=== PATIENT | female | born 1965 | race Caucasian/White ===

== ENCOUNTER → 2017-08-04 | Emergency (ER) | payer MEDICARE, MEDICAID | END | disposition home or self-care (01) | LOC: ER 09:18 | DX: S91.101A Unspecified open wound of right great toe without damage to nail, initial encounter (principal); Z88.1 Allergy status to other antibiotic agents; W22.8XXA Striking against or struck by other objects, initial encounter; Y93.89 Activity, other specified; Y99.8 Other external cause status; Y92.89 Other specified places as the place of occurrence of the external cause | CPT/HCPCS: 73660; 90471; 90715 ==

== ENCOUNTER 2018-01-22 03:59 | Emergency (ER) | payer MEDICARE, MEDICAID ==
[~2018-01-22] VITALS: Ht 172.7 cm; Wt 113.4 kg
[2018-01-22 04:46] LABS: Urine Bacteria FEW /hpf (None Seen); Urine Blood 1+ /uL (Negative); Urine Mucus FEW (None Seen); Urine Specific Gravity 1.017 (1.001-1.035); Urine WBC 8 /hpf (0 - 5)
[2018-01-22] MEDS ORDERED: methylPREDNISolone SOD SUCC 125 MG/2 ML VL IV ONE (05:00)
[2018-01-22] MEDS ORDERED: IPRATROPIUM BROM 0.5 MG/2.5ML INH SOL NEB ONE (05:00)
[2018-01-22] MEDS ORDERED: ALBUTEROL SULF 2.5 MG/0.5ML(0.5%) NEB SOLN NEB ONE (05:00)
[2018-01-22 05:03] LABS: Basophils # (auto) 0.2 uL; Basophils % (auto) 1.3 % (0.0-2.0); Eosinophils # (auto) 0.3 uL; Hematocrit 42.6 % (36.0-46.0); Hemoglobin 14.8 g/dL (12.2-16.2); Lymphocytes # (auto) 2.8 uL; Lymphocytes % (auto) 25.1 % (10.0-50.0); Mean Corpuscular Hemoglobin 31.4 pg (28.0-32.0); Mean Corpuscular Hgb Conc. 34.8 g/dL (32.0-36.0); Mean Corpuscular Volume 90.4 fL (80.0-100.0); Monocytes % (auto) 9.1 % (0.0-12.0); Neutrophils % (auto) 61.5 % (37.0-80.0); Platelet Count (auto) 247 10^3/uL (140-450); Red Blood Cells 4.71 10^6/uL (4.0-5.20); Red Cell Distribution Width 13.2 % (11.8-14.3); White Blood Cell 11.3 10^3/uL (4.4-10.8)
[2018-01-22 05:16] LABS: INR 0.94 (0.9-1.15); Partial Thromboplastin Time 30.5 sec (22.64-33.71); Prothrombin Time 10.2 sec (9.37-12.3)
[2018-01-22 05:26] LABS: Alanine Aminotransferase 23 U/L (13-56); Albumin 3.4 g/dL (3.4-5.0); Alkaline Phosphatase 106 U/L (45-117); Anion Gap 10 (5-15); Aspartate Aminotransferase 19 U/L (15-37); BUN/Creatinine Ratio 12.8; Bilirubin, Total 0.4 mg/dL (0.2-1.0); Blood Urea Nitrogen 12 mg/dL (7-18); Calcium 8.3 mg/dL (8.5-10.1); Carbon Dioxide 24 mmol/L (21-32); Chloride 106 mmol/L (98-107); GFR African American 81 mL/min; GFR Non-African American 67 mL/min; Glucose 110 mg/dL (74-106); Potassium 4.1 mmol/L (3.5-5.1); Sodium 140 mmol/L (136-145); Total Protein 7.5 g/dL (6.4-8.2)
[2018-01-22] MEDS ORDERED: IOHEXOL 350 MG/ML 100ML IJ ONE (08:44)
[2018-01-22] MEDS ORDERED: cefTRIAXone 1GM/10ml IVPUSH 10 ML IV ONE (08:45)
[2018-01-22 09:13] VITALS: BP 121/78
== END 2018-01-22 10:55 | disposition home or self-care (01) ==
LOC: ER 04:01
DX: J18.9 Pneumonia, unspecified organism (principal); F17.210 Nicotine dependence, cigarettes, uncomplicated
CPT/HCPCS: 36415; 71046; 71260; 80053; 81001; 83880; 84484; 85025; 85379; 85610; 85730; 87040; 93005; 94640; 96374; 96375; 99285; J2930; Q9967

== ENCOUNTER 2021-02-08 07:54 | Emergency (ER) | payer MEDICARE, MEDICAID ==
[~2021-02-08] VITALS: Ht 172.7 cm; Wt 109.8 kg
[2021-02-08 08:48] LABS: Urine Bacteria FEW /hpf (None Seen); Urine Blood 1+ /uL (Negative); Urine Hyaline Cast FEW /lpf (0 - 2); Urine Mucus FEW (None Seen); Urine Specific Gravity 1.022 (1.001-1.035); Urine WBC 1 /hpf (0 - 5)
[2021-02-08 09:09] LABS: Alcohol, Urine < 3.0 mg/dL (0-10); Benzodiazephine Screen, Urine NEGATIVE (NEGATIVE); Cannabinoid Screen, Urine POSITIVE (NEGATIVE); Cocaine Screen, Urine NEGATIVE (NEGATIVE); Opiate Scree,Urine NEGATIVE (NEGATIVE); Phencyclidine Screen, Urine NEGATIVE (NEGATIVE)
[2021-02-08 09:17] LABS: Amphetamine Screen, Urine POSITIVE (NEGATIVE); Barbiturate Scree,Urine NEGATIVE (NEGATIVE)
[2021-02-08 10:01] LABS: Basophils # (auto) 0.1 10 ^3/uL (0-0.2); Eosinophils # (auto) 0.2 10 ^3/uL (0-0.8); Eosinophils % (auto) 2.2 % (0.0-7.0); Hematocrit 45.7 % (36.0-46.0); Hemoglobin 15.5 g/dL (12.2-16.2); Lymphocytes # (auto) 1.9 10 ^3/uL (0.4-5.4); Lymphocytes % (auto) 22.8 % (10.0-50.0); Mean Corpuscular Hemoglobin 29.5 pg (28.0-32.0); Mean Corpuscular Hgb Conc. 33.9 g/dL (32.0-36.0); Mean Corpuscular Volume 87.2 fL (80.0-100.0); Monocytes # (auto) 0.7 10 ^3/uL (0-1.3); Neutrophils # (auto) 5.5 10 ^3/uL (1.6-8.6); Nucleated Red Blood Cells % 0.1 %; Red Blood Cells 5.23 10^6/uL (4.0-5.20); Red Cell Distribution Width 14.3 % (11.8-14.3); White Blood Cell 8.4 10^3/uL (4.4-10.8)
[2021-02-08] MEDS ORDERED: KETOROLAC TROMETH 60MG/2ML VIAL IM ONE (10:15)
[2021-02-08] MEDS ORDERED: PROMETHAZINE HCL 25 MG/ML 1ML IM ONE (10:15)
[2021-02-08 10:16] LABS: Alanine Aminotransferase 26 U/L (13-56); Albumin 3.6 g/dL (3.4-5.0); Anion Gap 4 (5-15); Aspartate Aminotransferase 19 U/L (15-37); BUN/Creatinine Ratio 17.2; Blood Urea Nitrogen 17 mg/dL (7-18); Calcium 8.8 mg/dL (8.5-10.1); Carbon Dioxide 28 mmol/L (21-32); Chloride 107 mmol/L (98-107); GFR African American 75 mL/min; GFR Non-African American 62 mL/min; Glucose 113 mg/dL (74-106); Potassium 4.1 mmol/L (3.5-5.1); Sodium 139 mmol/L (136-145)
[2021-02-08 10:19] LABS: Alkaline Phosphatase 133 U/L (45-117); Bilirubin, Total 0.3 mg/dL (0.2-1.0); Total Protein 8.4 g/dL (6.4-8.2)
[2021-02-08 10:33] VITALS: BP 189/103
== END 2021-02-08 10:59 | disposition home or self-care (01) ==
LOC: ER 07:54
DX: K80.20 Calculus of gallbladder without cholecystitis without obstruction (principal); M51.34 Other intervertebral disc degeneration, thoracic region; F15.10 Other stimulant abuse, uncomplicated; F17.210 Nicotine dependence, cigarettes, uncomplicated; F12.10 Cannabis abuse, uncomplicated; K21.9 Gastro-esophageal reflux disease without esophagitis
CPT/HCPCS: 36415; 74176; 80053; 80307; 81001; 83690; 84484; 85025; 93005; 96372; 99285; J1885; J2550

== ENCOUNTER 2022-10-26 12:34 | Inpatient (IN) | payer MEDICARE, MEDICAID ==
[~2022-10-26] VITALS: Ht 175.3 cm; Wt 120.7 kg
[2022-10-26] MEDS ORDERED: ALBUTEROL SULF 2.5 MG/0.5ML(0.5%) NEB SOLN NEB ONE (13:15)
[2022-10-26] MEDS ORDERED: IPRATROPIUM BROM 0.5 MG/2.5ML INH SOL NEB ONE (13:15)
[2022-10-26] MEDS ORDERED: SODIUM CHLORIDE 0.9% 1,000 ML IV ONE (13:15)
[2022-10-26] MEDS ORDERED: ACETAMINOPHEN 500 MG TAB PO ONE (14:00)
[2022-10-26 14:15] LABS: Basophils # (auto) 0.1 10 ^3/uL (0-0.2); Basophils % (auto) 0.4 % (0.0-2.0); Eosinophils # (auto) 0 10 ^3/uL (0-0.8); Hematocrit 43.7 % (36.0-46.0); Hemoglobin 14.6 g/dL (12.2-16.2); Lymphocytes # (auto) 1.3 10 ^3/uL (0.4-5.4); Mean Corpuscular Hemoglobin 30.3 pg (28.0-32.0); Mean Corpuscular Hgb Conc. 33.3 g/dL (32.0-36.0); Mean Corpuscular Volume 90.9 fL (80.0-100.0); Monocytes # (auto) 1.8 10 ^3/uL (0-1.3); Monocytes % (auto) 8.1 % (0.0-12.0); Neutrophils # (auto) 18.5 10 ^3/uL (1.6-8.6); Neutrophils % (auto) 85.5 % (37.0-80.0); Red Blood Cells 4.81 10^6/uL (4.0-5.20); Red Cell Distribution Width 13.3 % (11.8-14.3); White Blood Cell 21.6 10^3/uL (4.4-10.8)
[2022-10-26 14:30] LABS: Albumin 2.9 g/dL (3.4-5.0); Calcium 8.9 mg/dL (8.5-10.1); Potassium 4.2 mmol/L (3.5-5.1)
[2022-10-26 14:33] LABS: BUN/Creatinine Ratio 10.9
[2022-10-26 14:43] LABS: Bilirubin, Total 0.9 mg/dL (0.2-1.0)
[2022-10-26] MEDS ORDERED: cefTRIAXone 1GM/50ML D5W 50 ML IV ONE (15:45)
[2022-10-26 16:48] LABS: Urine Bacteria NONE SEEN /hpf (None Seen); Urine Blood 2+ /uL (Negative); Urine Hyaline Cast FEW /lpf (0 - 2); Urine Mucus FEW (None Seen); Urine Specific Gravity 1.025 (1.001-1.035); Urine WBC 5 /hpf (0 - 5)
[2022-10-26] MEDS ORDERED: AZITHROMYCIN 500MG/ 250ML 250 ML IV ONE (17:30)
[2022-10-26] MEDS ORDERED: ACETAMINOPHEN 325 MG TAB PO ONE (20:15)
[2022-10-26] MEDS ORDERED: NITROGLYCERIN 0.4 MG SL TAB SL PRN ×2 (21:00)
[2022-10-26] MEDS ORDERED: ACETAMINOPHEN 325 MG TAB PO PRN (21:00)
[2022-10-26] MEDS ORDERED: MORPHINE SULFATE 4 MG/ML SYR/VIAL IV PRN (21:00)
[2022-10-26] MEDS ORDERED: LORazepam 0.5 MG TAB PO PRN (21:00)
[2022-10-26] MEDS ORDERED: ONDANSETRON HCL 4 MG/2 ML VIAL IV PRN (21:00)
[2022-10-26] MEDS ORDERED: MORPHINE SULFATE INJ 2 MG/ml SYRG IV PRN (21:00)
[2022-10-26] MEDS ORDERED: DEXTROSE (50%) 50ML SYRG IV PRN (21:15)
[2022-10-26] MEDS: SODIUM CHLORIDE 0.9% 1,000 ML IV SCH (21:36)
[2022-10-26] MEDS ORDERED: ENOXAPARIN SOD 100 MG/1 ML SYRINGE SC SCH (22:00)
[2022-10-26] MEDS ORDERED: METOPROLOL TARTRATE 25 MG TAB PO SCH (22:00)
[2022-10-26] MEDS ORDERED: ATOR20TA50 PO (23:03)
[2022-10-26] MEDS ORDERED: HYDR-3682 PO (23:03)
[2022-10-26] MEDS ORDERED: ELVI1TAB5 PO (23:03)
[2022-10-26] MEDS: IPRATROPIUM BROM 0.5 MG/2.5ML INH SOL NEB PRN ×2 (23:14→23:37)
[2022-10-26] MEDS: ALBUTEROL SULF 2.5 MG/0.5ML(0.5%) NEB SOLN NEB PRN ×2 (23:14→23:37)
[2022-10-26] MEDS: ACCU-CHEK COMFORT CURVE STRIP VI SCH (23:23)
[2022-10-26] MEDS: ATORVASTATIN 20 MG TAB PO SCH (23:23)
[2022-10-26] MEDS: InsuLIN REG 1unit/0.01ml Soln (100units/ml) SC SCH (23:28)
[2022-10-26 23:51] VITALS: BP 110/56
[2022-10-27] MEDS: ACCU-CHEK COMFORT CURVE STRIP VI SCH ×4 (04:13→21:41)
[2022-10-27] MEDS: InsuLIN REG 1unit/0.01ml Soln (100units/ml) SC SCH ×4 (04:16→22:51)
[2022-10-27] MEDS: IPRATROPIUM BROM 0.5 MG/2.5ML INH SOL NEB PRN (04:40)
[2022-10-27] MEDS: ALBUTEROL SULF 2.5 MG/0.5ML(0.5%) NEB SOLN NEB PRN (04:40)
[2022-10-27 05:00] VITALS: BP 99/57
[2022-10-27 06:40] LABS: Potassium 3.8 mmol/L (3.5-5.1)
[2022-10-27 06:45] LABS: Basophils # (auto) 0.1 10 ^3/uL (0-0.2); Basophils % (auto) 0.4 % (0.0-2.0); Eosinophils # (auto) 0 10 ^3/uL (0-0.8); Eosinophils % (auto) 0.1 % (0.0-7.0); Hemoglobin 12.1 g/dL (12.2-16.2); Lymphocytes # (auto) 1.8 10 ^3/uL (0.4-5.4); Lymphocytes % (auto) 9.3 % (10.0-50.0); Mean Corpuscular Hemoglobin 30.8 pg (28.0-32.0); Mean Corpuscular Hgb Conc. 34.5 g/dL (32.0-36.0); Mean Corpuscular Volume 89.5 fL (80.0-100.0); Monocytes # (auto) 1.3 10 ^3/uL (0-1.3); Neutrophils # (auto) 15.6 10 ^3/uL (1.6-8.6); Neutrophils % (auto) 83.2 % (37.0-80.0); Red Blood Cells 3.92 10^6/uL (4.0-5.20); Red Cell Distribution Width 13.4 % (11.8-14.3); White Blood Cell 18.8 10^3/uL (4.4-10.8)
[2022-10-27 07:13] LABS: BUN/Creatinine Ratio 16.9
[2022-10-27 07:14] LABS: Calcium 8.6 mg/dL (8.5-10.1)
[2022-10-27] MEDS ORDERED: DEXTROSE (50%) 50ML SYRG IV PRN (08:30)
[2022-10-27] MEDS ORDERED: IPRATROPIUM BROM 0.5 MG/2.5ML INH SOL NEB PRN (08:30)
[2022-10-27] MEDS ORDERED: ALBUTEROL SULF 2.5 MG/0.5ML(0.5%) NEB SOLN NEB PRN (08:30)
[2022-10-27] MEDS ORDERED: ACETAMINOPHEN 325 MG TAB PO PRN (08:30)
[2022-10-27 09:00] VITALS: BP 93/57
[2022-10-27] MEDS ORDERED: CLOPIDOGREL BISULFATE 75 MG TAB PO SCH (10:00)
[2022-10-27] MEDS ORDERED: LISINOPRIL 10 MG TAB PO SCH (10:00)
[2022-10-27] MEDS ORDERED: ELVITEGRAVIR COBICISTAT EMTRIC PO SCH (10:00)
[2022-10-27] MEDS: cefTRIAXone 1GM/50ML D5W 50 ML IV SCH (11:29)
[2022-10-27] MEDS: ASPirin 81 mg TAB PO SCH (11:35)
[2022-10-27] MEDS: DOCUSATE SOD 100 MG CAP PO SCH (11:35)
[2022-10-27] MEDS: PANTOPRAZOLE 40 MG TAB PO SCH (11:36)
[2022-10-27] MEDS: ENOXAPARIN SOD 120 MG/0.8 ML SYRINGE SC SCH ×2 (11:40→21:38)
[2022-10-27 13:00] VITALS: BP 115/59
[2022-10-27] MEDS: AZITHROMYCIN 500MG/ 250ML 250 ML IV SCH (13:00)
[2022-10-27 17:00] VITALS: BP 122/64
[2022-10-27] MEDS: ATORVASTATIN 20 MG TAB PO SCH (21:37)
[2022-10-27] MEDS: SODIUM CHLORIDE 0.9% 1,000 ML IV SCH (21:38)
[2022-10-27] MEDS: ELVITEGRAVIR COBICISTAT EMTRIC PO SCH (21:38)
[2022-10-27 22:00] VITALS: BP 103/51
[2022-10-28] VITALS (7 sets, daily range): BP systolic 108–133; BP diastolic 62–69
[2022-10-28 06:22] LABS: Basophils # (auto) 0.1 10 ^3/uL (0-0.2); Basophils % (auto) 0.8 % (0.0-2.0); Eosinophils # (auto) 0.2 10 ^3/uL (0-0.8); Eosinophils % (auto) 1.7 % (0.0-7.0); Hematocrit 35.9 % (36.0-46.0); Lymphocytes # (auto) 2.1 10 ^3/uL (0.4-5.4); Lymphocytes % (auto) 13.9 % (10.0-50.0); Mean Corpuscular Hemoglobin 30.5 pg (28.0-32.0); Mean Corpuscular Hgb Conc. 33.3 g/dL (32.0-36.0); Mean Corpuscular Volume 91.6 fL (80.0-100.0); Monocytes # (auto) 0.8 10 ^3/uL (0-1.3); Monocytes % (auto) 5.3 % (0.0-12.0); Neutrophils # (auto) 11.7 10 ^3/uL (1.6-8.6); Neutrophils % (auto) 78.3 % (37.0-80.0); Red Blood Cells 3.92 10^6/uL (4.0-5.20); Red Cell Distribution Width 13.6 % (11.8-14.3); White Blood Cell 14.9 10^3/uL (4.4-10.8)
[2022-10-28] MEDS: ACCU-CHEK COMFORT CURVE STRIP VI SCH ×4 (06:58→22:48)
[2022-10-28] MEDS: InsuLIN REG 1unit/0.01ml Soln (100units/ml) SC SCH ×4 (06:59→22:49)
[2022-10-28] MEDS: cefTRIAXone 1GM/50ML D5W 50 ML IV SCH (09:55)
[2022-10-28] MEDS: ENOXAPARIN SOD 120 MG/0.8 ML SYRINGE SC SCH ×2 (09:55→22:47)
[2022-10-28] MEDS: ASPirin 81 mg TAB PO SCH (09:55)
[2022-10-28] MEDS: PANTOPRAZOLE 40 MG TAB PO SCH (09:55)
[2022-10-28] MEDS: DOCUSATE SOD 100 MG CAP PO SCH (09:55)
[2022-10-28] MEDS: ELVITEGRAVIR COBICISTAT EMTRIC PO SCH (09:56)
[2022-10-28] MEDS: AZITHROMYCIN 500MG/ 250ML 250 ML IV SCH (10:55)
[2022-10-28 11:36] LABS: BUN/Creatinine Ratio 15.4; Magnesium 2.5 mg/dL (1.6-2.6); Potassium 3.9 mmol/L (3.5-5.1)
[2022-10-28] MEDS ORDERED: BACTRIM 5MG/KG Q8HR PER RX 0 ML IV SCH (12:00)
[2022-10-28] MEDS ORDERED: VANCOMYCIN PER PHARMACY 0 MG IV SCH (12:00)
[2022-10-28] MEDS ORDERED: VANCOMYCIN 1GM/250ML 250 ML IV ONE (12:45)
[2022-10-28] MEDS: SULFAMETH-TRIMETH 80/16MG-ML 20 ML in D5W 5% 500 ML IV SCH (18:55)
[2022-10-28] MEDS: ATORVASTATIN 20 MG TAB PO SCH (22:45)
[2022-10-28] MEDS: ZOLPIDEM TARTRATE 5 MG TAB PO PRN (22:45)
[2022-10-28] MEDS: predniSONE 20 MG TAB PO SCH (22:47)
[2022-10-29] VITALS (7 sets, daily range): BP systolic 113–134; BP diastolic 55–70
[2022-10-29] MEDS: VANCOMYCIN 1GM/250ML 250 ML IV SCH ×2 (00:26→08:20)
[2022-10-29] MEDS: SULFAMETH-TRIMETH 80/16MG-ML 20 ML in D5W 5% 500 ML IV SCH ×3 (01:35→16:51)
[2022-10-29 06:32] LABS: BUN/Creatinine Ratio 12.5; Calcium 8.8 mg/dL (8.5-10.1); Potassium 4.4 mmol/L (3.5-5.1)
[2022-10-29 06:39] LABS: Basophils # (auto) 0.1 10 ^3/uL (0-0.2); Basophils % (auto) 0.5 % (0.0-2.0); Eosinophils # (auto) 0 10 ^3/uL (0-0.8); Eosinophils % (auto) 0.3 % (0.0-7.0); Hematocrit 36.7 % (36.0-46.0); Hemoglobin 12.6 g/dL (12.2-16.2); Lymphocytes # (auto) 1.2 10 ^3/uL (0.4-5.4); Mean Corpuscular Hgb Conc. 34.3 g/dL (32.0-36.0); Mean Corpuscular Volume 90.3 fL (80.0-100.0); Monocytes # (auto) 0.2 10 ^3/uL (0-1.3); Monocytes % (auto) 2.2 % (0.0-12.0); Neutrophils # (auto) 9.1 10 ^3/uL (1.6-8.6); Red Blood Cells 4.07 10^6/uL (4.0-5.20); Red Cell Distribution Width 13.3 % (11.8-14.3); White Blood Cell 10.6 10^3/uL (4.4-10.8)
[2022-10-29] MEDS: InsuLIN REG 1unit/0.01ml Soln (100units/ml) SC SCH ×4 (07:12→22:13)
[2022-10-29] MEDS: ACCU-CHEK COMFORT CURVE STRIP VI SCH ×4 (07:21→22:00)
[2022-10-29] MEDS: cefTRIAXone 1GM/50ML D5W 50 ML IV SCH (10:54)
[2022-10-29] MEDS: predniSONE 20 MG TAB PO SCH ×2 (10:54→22:11)
[2022-10-29] MEDS: ASPirin 81 mg TAB PO SCH (10:54)
[2022-10-29] MEDS: DOCUSATE SOD 100 MG CAP PO SCH (10:54)
[2022-10-29] MEDS: PANTOPRAZOLE 40 MG TAB PO SCH (10:55)
[2022-10-29] MEDS: ENOXAPARIN SOD 120 MG/0.8 ML SYRINGE SC SCH ×2 (10:55→22:11)
[2022-10-29] MEDS: ELVITEGRAVIR COBICISTAT EMTRIC PO SCH (10:55)
[2022-10-29] MEDS: AZITHROMYCIN 500MG/ 250ML 250 ML IV SCH (11:59)
[2022-10-29 14:59] LABS: Hepatitis C Antibody Negative (Negative)
[2022-10-29] MEDS: ATORVASTATIN 20 MG TAB PO SCH (22:11)
[2022-10-29] MEDS: ZOLPIDEM TARTRATE 5 MG TAB PO PRN (22:11)
[2022-10-30] VITALS (7 sets, daily range): BP systolic 97–138; BP diastolic 50–98
[2022-10-30] MEDS: SULFAMETH-TRIMETH 80/16MG-ML 20 ML in D5W 5% 500 ML IV SCH ×3 (01:51→17:15)
[2022-10-30] MEDS: ACCU-CHEK COMFORT CURVE STRIP VI SCH ×4 (06:12→21:36)
[2022-10-30] MEDS: InsuLIN REG 1unit/0.01ml Soln (100units/ml) SC SCH ×4 (06:17→21:41)
[2022-10-30] MEDS: cefTRIAXone 1GM/50ML D5W 50 ML IV SCH (09:07)
[2022-10-30] MEDS: ELVITEGRAVIR COBICISTAT EMTRIC PO SCH (09:10)
[2022-10-30] MEDS: predniSONE 20 MG TAB PO SCH ×2 (09:10→21:36)
[2022-10-30] MEDS: ASPirin 81 mg TAB PO SCH (09:10)
[2022-10-30] MEDS: DOCUSATE SOD 100 MG CAP PO SCH (09:11)
[2022-10-30] MEDS: PANTOPRAZOLE 40 MG TAB PO SCH (09:11)
[2022-10-30] MEDS: AZITHROMYCIN 500MG/ 250ML 250 ML IV SCH (09:12)
[2022-10-30] MEDS: ENOXAPARIN SOD 120 MG/0.8 ML SYRINGE SC SCH ×2 (09:12→21:36)
[2022-10-30] MEDS: ZOLPIDEM TARTRATE 5 MG TAB PO PRN (21:36)
[2022-10-30] MEDS: ATORVASTATIN 20 MG TAB PO SCH (21:36)
[2022-10-31] MEDS: SULFAMETH-TRIMETH 80/16MG-ML 20 ML in D5W 5% 500 ML IV SCH ×2 (01:43→08:44)
[2022-10-31 05:00] VITALS: BP 112/46
[2022-10-31] MEDS: ACCU-CHEK COMFORT CURVE STRIP VI SCH ×2 (06:19→11:57)
[2022-10-31] MEDS: InsuLIN REG 1unit/0.01ml Soln (100units/ml) SC SCH ×2 (06:19→11:52)
[2022-10-31 08:05] VITALS: BP 97/73
[2022-10-31] MEDS: cefTRIAXone 1GM/50ML D5W 50 ML IV SCH (08:44)
[2022-10-31] MEDS: AZITHROMYCIN 500MG/ 250ML 250 ML IV SCH (08:46)
[2022-10-31] MEDS: DOCUSATE SOD 100 MG CAP PO SCH (08:51)
[2022-10-31] MEDS: ENOXAPARIN SOD 120 MG/0.8 ML SYRINGE SC SCH (08:51)
[2022-10-31] MEDS: ASPirin 81 mg TAB PO SCH (08:51)
[2022-10-31] MEDS: PANTOPRAZOLE 40 MG TAB PO SCH (08:51)
[2022-10-31] MEDS: ELVITEGRAVIR COBICISTAT EMTRIC PO SCH (08:52)
[2022-10-31] MEDS: predniSONE 20 MG TAB PO SCH (08:52)
[2022-10-31 09:14] VITALS: BP 140/63
[2022-10-31 12:35] VITALS: BP 145/71
[2022-10-31] MEDS ORDERED: METF-370 PO (13:52)
[2022-10-31] MEDS ORDERED: metFORMIN HYDROCHLORIDE 500 MG TAB PO ONE (14:00)
[2022-10-31] MEDS ORDERED: BACDST PO (14:09)
[2022-10-31] MEDS ORDERED: ELVI1TAB5 PO (14:14)
[2022-10-31] MEDS ORDERED: PRED20TA2 PO (14:14)
[2022-11-01] MEDS ORDERED: AZITHROMYCIN 250 MG TAB PO SCH (10:00)
== END 2022-10-31 15:27 | disposition home or self-care (01) | DRG 871 ==
LOC: ER 12:34 → TELE 21:00 → TELE-EAST 22:32
PROVIDERS: ADMIT Hospitalist; ATTEND Internal Medicine Geriatric Medicine
DX: A41.9 Sepsis, unspecified organism (principal); I26.99 Other pulmonary embolism without acute cor pulmonale; J18.9 Pneumonia, unspecified organism; J96.01 Acute respiratory failure with hypoxia; N17.9 Acute kidney failure, unspecified; E87.1 Hypo-osmolality and hyponatremia; E44.0 Moderate protein-calorie malnutrition; E03.9 Hypothyroidism, unspecified; K21.9 Gastro-esophageal reflux disease without esophagitis; E11.21 Type 2 diabetes mellitus with diabetic nephropathy; Z20.822 Contact with and (suspected) exposure to COVID-19; F17.210 Nicotine dependence, cigarettes, uncomplicated; E66.01 Morbid (severe) obesity due to excess calories; F15.10 Other stimulant abuse, uncomplicated; Z82.49 Family history of ischemic heart disease and other diseases of the circulatory system; Z68.39 Body mass index [BMI] 39.0-39.9, adult
CPT/HCPCS: 36415; 71046; 71250; 78582; 80048; 80053; 80061; 80202; 81001; 82962; 83036; 83735; 83880; 84443; 84484; 85025; 85379; 86360; 86606; 86635; 86644; 86645; 86803; 87040; 87070; 87081; 87205; 87340; 87426; 87804; 87899; 93005; 93306; 93970; 94640; 96361; 96365; 96367; G0378; J0696; J1815; J3490

== ENCOUNTER 2022-11-05 14:41 | Emergency (ER) | payer MEDICARE, MEDICAID ==
[~2022-11-05] VITALS: Ht 172.7 cm; Wt 114.1 kg
[~2022-11-05 14:41] MED LIST: BACDST PO; ELVI1TAB5 PO; HYDR-3682 PO; METF-370 PO; PRED20TA2 PO
[2022-11-05 14:54] VITALS: BP 113/73
[2022-11-05 16:04] LABS: Albumin 3.5 g/dL (3.4-5.0); BUN/Creatinine Ratio 13.1; Calcium 9.7 mg/dL (8.5-10.1); Potassium 5.4 mmol/L (3.5-5.1)
[2022-11-05 16:07] LABS: Bilirubin, Total 0.3 mg/dL (0.2-1.0); Total Protein 7.4 g/dL (6.4-8.2)
[2022-11-05 16:13] LABS: Basophils # (auto) 0.1 10 ^3/uL (0-0.2); Basophils % (auto) 0.6 % (0.0-2.0); Eosinophils # (auto) 0.1 10 ^3/uL (0-0.8); Eosinophils % (auto) 1.3 % (0.0-7.0); Hematocrit 45.9 % (36.0-46.0); Hemoglobin 15.4 g/dL (12.2-16.2); Lymphocytes # (auto) 2.7 10 ^3/uL (0.4-5.4); Lymphocytes % (auto) 27.3 % (10.0-50.0); Mean Corpuscular Hemoglobin 30.4 pg (28.0-32.0); Mean Corpuscular Hgb Conc. 33.5 g/dL (32.0-36.0); Mean Corpuscular Volume 90.9 fL (80.0-100.0); Monocytes # (auto) 0.5 10 ^3/uL (0-1.3); Monocytes % (auto) 4.6 % (0.0-12.0); Neutrophils # (auto) 6.6 10 ^3/uL (1.6-8.6); Neutrophils % (auto) 66.2 % (37.0-80.0); Red Blood Cells 5.05 10^6/uL (4.0-5.20); Red Cell Distribution Width 13.8 % (11.8-14.3)
[2022-11-05] MEDS ORDERED: ALBUTEROL SULF 2.5 MG/0.5ML(0.5%) NEB SOLN NEB ONE (21:45)
[2022-11-05 22:04] LABS: Urine Bacteria NONE SEEN /hpf (None Seen); Urine Blood Negative /uL (Negative); Urine Specific Gravity 1.023 (1.001-1.035); Urine WBC 1 /hpf (0 - 5)
[2022-11-05] MEDS ORDERED: ALBUTEROL MEDNEB 2.5 mg/3ml NEB ONE (22:14)
== END 2022-11-05 23:18 | disposition home or self-care (01) ==
LOC: ER 14:41
DX: R53.1 Weakness (principal); E87.5 Hyperkalemia; E11.9 Type 2 diabetes mellitus without complications; K21.9 Gastro-esophageal reflux disease without esophagitis; F17.210 Nicotine dependence, cigarettes, uncomplicated; Z79.899 Other long term (current) drug therapy; Z20.822 Contact with and (suspected) exposure to COVID-19
CPT/HCPCS: 36415; 71046; 80053; 81001; 83880; 84484; 85025; 87426; 93005; 94640

== ENCOUNTER 2023-03-04 01:23 | Emergency (ER) | payer MEDICARE, MEDICAID ==
[~2023-03-04] VITALS: Ht 172.7 cm; Wt 118.0 kg
[2023-03-04 02:34] LABS: Basophils # (auto) 0.1 10 ^3/uL (0-0.2); Basophils % (auto) 1.3 % (0.0-2.0); Eosinophils # (auto) 0.2 10 ^3/uL (0-0.8); Eosinophils % (auto) 2.4 % (0.0-7.0); Hematocrit 42.2 % (36.0-46.0); Hemoglobin 14.3 g/dL (12.2-16.2); Lymphocytes # (auto) 2.2 10 ^3/uL (0.4-5.4); Mean Corpuscular Hemoglobin 32.2 pg (28.0-32.0); Mean Corpuscular Hgb Conc. 33.9 g/dL (32.0-36.0); Monocytes # (auto) 0.6 10 ^3/uL (0-1.3); Monocytes % (auto) 8.1 % (0.0-12.0); Neutrophils # (auto) 4.2 10 ^3/uL (1.6-8.6); Neutrophils % (auto) 58.2 % (37.0-80.0); Nucleated Red Blood Cells % 0.1 %; Red Blood Cells 4.44 10^6/uL (4.0-5.20); Red Cell Distribution Width 13.7 % (11.8-14.3); White Blood Cell 7.2 10^3/uL (4.4-10.8)
[2023-03-04 02:42] LABS: Albumin 3.4 g/dL (3.4-5.0); Calcium 8.8 mg/dL (8.5-10.1); Magnesium 2.2 mg/dL (1.6-2.6)
[2023-03-04 02:45] LABS: BUN/Creatinine Ratio 11.8 (10.0-20.0); Bilirubin, Total 0.3 mg/dL (0.2-1.0); Total Protein 7.1 g/dL (6.4-8.2)
[2023-03-04 02:53] LABS: INR 0.96 (0.9-1.15); Partial Thromboplastin Time 30.5 sec (24.6-33.4)
[2023-03-04] MEDS ORDERED: ALBUAER3 IN (05:51)
[2023-03-04] MEDS ORDERED: PRED20TA2 PO (05:51)
[2023-03-04] MEDS ORDERED: AZIT250T9 PO (05:51)
[2023-03-04 06:00] VITALS: BP 125/60
== END 2023-03-04 06:04 | disposition home or self-care (01) ==
LOC: ER 01:23
DX: J06.9 Acute upper respiratory infection, unspecified (principal); E11.9 Type 2 diabetes mellitus without complications; K21.9 Gastro-esophageal reflux disease without esophagitis; F12.10 Cannabis abuse, uncomplicated; F15.10 Other stimulant abuse, uncomplicated
CPT/HCPCS: 36415; 71045; 80053; 83735; 83880; 84484; 85025; 85610; 85730; 93005

== ENCOUNTER 2024-03-16 14:52 | Emergency (ER) | payer OTHER, MEDICAID ==
[~2024-03-16] VITALS: Ht 172.7 cm; Wt 113.2 kg
[~2024-03-16 14:52] MED LIST changes: +ALBUAER3 IN; +AZIT-43 PO
[2024-03-16 15:28] VITALS: BP 93/72; PULSE 105; RESP 20; O2SAT 97
[2024-03-16 16:13] LABS: Basophils # (auto) 0.1 10 ^3/uL (0-0.2); Basophils % (auto) 1.2 % (0.0-2.0); Eosinophils # (auto) 0 10 ^3/uL (0-0.8); Eosinophils % (auto) 0.3 % (0.0-7.0); Hematocrit 38.7 % (36.0-46.0); Hemoglobin 12.9 g/dL (12.2-16.2); Lymphocytes # (auto) 1.9 10 ^3/uL (0.4-5.4); Mean Corpuscular Hemoglobin 30.3 pg (28.0-32.0); Mean Corpuscular Hgb Conc. 33.2 g/dL (32.0-36.0); Mean Corpuscular Volume 91.3 fL (80.0-100.0); Monocytes # (auto) 0.1 10 ^3/uL (0-1.3); Monocytes % (auto) 3.3 % (0.0-12.0); Neutrophils # (auto) 2.4 10 ^3/uL (1.6-8.6); Neutrophils % (auto) 53.2 % (37.0-80.0); Nucleated Red Blood Cells % 0.1 %; Red Blood Cells 4.24 10^6/uL (4.0-5.20); Red Cell Distribution Width 14.2 % (11.8-14.3); White Blood Cell 4.5 10^3/uL (4.4-10.8)
[2024-03-16 16:32] LABS: Alanine Aminotransferase 21 U/L (7-40); Albumin 4.2 g/dL (3.2-4.8); Alkaline Phosphatase 106 U/L (46-116); Anion Gap 6 (5-15); Aspartate Aminotransferase 11 U/L (13-40); Bilirubin, Total 0.5 mg/dL (0.2-1.0); Blood Urea Nitrogen 23 mg/dL (9-23); Calcium 9.3 mg/dL (8.5-10.1); Carbon Dioxide 26 mmol/L (20-30); Chloride 103 mmol/L (98-107); Glucose 236 mg/dL (74-106); Potassium 4.1 mmol/L (3.5-5.1); Sodium 135 mmol/L (136-145); Total Protein 6.4 g/dL (5.7-8.2)
[2024-03-16 17:50] LABS: Urine Bacteria None Seen /hpf (None Seen)
[2024-03-16 18:11] LABS: Urine Blood Negative /uL (Negative); Urine Clarity Clear (Clear); Urine Color Light-Yellow (Yellow); Urine Protein, UAD Negative (Negative); Urine Specific Gravity 1.034 (1.001-1.035); Urine Urobilinogen Normal (Negative); Urine WBC 1 /hpf (0 - 5); Urine pH 5.5 (5.0-9.0)
[2024-03-16] MEDS: ONDANSETRON HCL 4 MG/2 ML VIAL IV ONE (20:00)
[2024-03-16] MEDS: SODIUM CHLORIDE 0.9% 1,000 ML IV ONE (20:00)
== END 2024-03-16 22:05 | disposition home or self-care (01) ==
LOC: ER 14:52
DX: E11.21 Type 2 diabetes mellitus with diabetic nephropathy (principal); E44.0 Moderate protein-calorie malnutrition; E66.01 Morbid (severe) obesity due to excess calories; R53.1 Weakness; K21.9 Gastro-esophageal reflux disease without esophagitis; F15.90 Other stimulant use, unspecified, uncomplicated; Z68.37 Body mass index [BMI] 37.0-37.9, adult; Z98.890 Other specified postprocedural states; Z79.899 Other long term (current) drug therapy
CPT/HCPCS: 36415; 71045; 80053; 81001; 83605; 83880; 84484; 85025

== ENCOUNTER → 2024-03-19 | Outpatient (CLI) | payer OTHER, MEDICAID | END | disposition home or self-care (01) | LOC: XYW 12:39 | PROVIDERS: ATTEND Student in an Organized Health Care Education/Training Program | DX: Z01.810 Encounter for preprocedural cardiovascular examination (principal); I10 Essential (primary) hypertension; E11.65 Type 2 diabetes mellitus with hyperglycemia | CPT/HCPCS: 93306 ==

== ENCOUNTER 2024-07-23 21:40 | Inpatient (IN) | payer OTHER, MEDICAID ==
[~2024-07-23] VITALS: Ht 170.2 cm; Wt 108.5 kg
[2024-07-23 22:03] LABS: Mean Corpuscular Hgb Conc. 34.3 g/dL (32.0-36.0)
[2024-07-23 22:05] LABS: Hematocrit 30.9 % (36.0-46.0); Hemoglobin 10.6 g/dL (12.2-16.2); Mean Corpuscular Hemoglobin 32.9 pg (28.0-32.0); Platelet Count (auto) 267 10^3/uL (140-450); Red Blood Cells 3.22 10^6/uL (4.0-5.20); Red Cell Distribution Width 17.3 % (11.8-14.3); White Blood Cell 1.9 10^3/uL (4.4-10.8)
[2024-07-23 22:07] LABS: Basophils % (manual) 0 (0.0-2.0); Blast Cells 0; Eosinophils % (manual) 0 (0-7); Metamyelocytes % 0; Myelocytes % 0; Promyelocytes % 0; Reactive Lymphocytes 0
[2024-07-23 22:20] LABS: Albumin 4.4 g/dL (3.2-4.8); Alkaline Phosphatase 93 U/L (46-116); Anion Gap 5 (5-15); Aspartate Aminotransferase 8 U/L (13-40); BUN/Creatinine Ratio 8.1 (10.0-20.0); Bilirubin, Total 0.3 mg/dL (0.2-1.0); Blood Urea Nitrogen 10 mg/dL (9-23); Calcium 9.7 mg/dL (8.7-10.4); Carbon Dioxide 29 mmol/L (20-30); Chloride 103 mmol/L (98-107); Glucose 178 mg/dL (74-106); Sodium 137 mmol/L (136-145); Total Protein 7.2 g/dL (5.7-8.2)
[2024-07-23 22:25] LABS: Alanine Aminotransferase < 9 U/L (7-40)
[2024-07-23 22:35] LABS: Band Neutrophils % (manual) 8; Lymphocytes % (manual) 43 (10.0-50.0); Monocytes % (manual) 21 (0-12)
[2024-07-23 22:36] LABS: Platelet Estimate Adequate
[2024-07-23] MEDS: SODIUM CHLORIDE 0.9% 1,000 ML IV ONE (23:05)
[2024-07-23] MEDS: ONDANSETRON HCL 4 MG/2 ML VIAL IV ONE (23:19)
[2024-07-23] MEDS: KETOROLAC TROMETH 30 MG/ML 1ML VIAL IV ONE (23:20)
[2024-07-23] MEDS: IOHEXOL 350 MG/ML 100ML IJ ONE (23:58)
[2024-07-24] MEDS: InsuLIN REG 1unit/0.01ml Soln (100units/ml) SC SCH ×2 (00:34→07:51)
[2024-07-24] MEDS ORDERED: DOCUSATE SOD 100 MG CAP PO PRN (03:30)
[2024-07-24] MEDS ORDERED: HYDROcodone-ACET 5/325MG TAB PO PRN (03:30)
[2024-07-24] MEDS ORDERED: ACETAMINOPHEN 325 MG TAB PO PRN (03:30)
[2024-07-24] MEDS ORDERED: DEXTROSE (50%) 50ML SYRG IV PRN (03:30)
[2024-07-24] MEDS ORDERED: ONDANSETRON HCL 4 MG/2 ML VIAL IV PRN (03:30)
[2024-07-24] MEDS ORDERED: NITROGLYCERIN 0.4 MG SL TAB SL PRN (03:30)
[2024-07-24] MEDS ORDERED: MORPHINE SULFATE INJ 2 MG/ml SYRG IV PRN (03:30)
[2024-07-24] MEDS: SODIUM CHLOR 0.9% PF (SALINE LOCK) 10ML VIAL/SYR IV SCH (05:25)
[2024-07-24 05:27] LABS: Basophils # (auto) 0 10 ^3/uL (0-0.2); Eosinophils # (auto) 0 10 ^3/uL (0-0.8); Lymphocytes # (auto) 0.4 10 ^3/uL (0.4-5.4); Mean Corpuscular Volume 96.5 fL (80.0-100.0); Monocytes # (auto) 0.3 10 ^3/uL (0-1.3)
[2024-07-24 05:31] LABS: Basophils % (auto) 0.5 % (0.0-2.0); Eosinophils % (auto) 1.4 % (0.0-7.0); Hematocrit 29.8 % (36.0-46.0); Hemoglobin 10.2 g/dL (12.2-16.2); Lymphocytes % (auto) 24.8 % (10.0-50.0); Mean Corpuscular Hemoglobin 32.9 pg (28.0-32.0); Mean Corpuscular Hgb Conc. 34.1 g/dL (32.0-36.0); Monocytes % (auto) 17.9 % (0.0-12.0); Neutrophils # (auto) 0.9 10 ^3/uL (1.6-8.6); Neutrophils % (auto) 55.4 % (37.0-80.0); Nucleated Red Blood Cells % 0.4 %; Platelet Count (auto) 252 10^3/uL (140-450); Red Blood Cells 3.09 10^6/uL (4.0-5.20); Red Cell Distribution Width 17.3 % (11.8-14.3)
[2024-07-24 05:59] LABS: Alkaline Phosphatase 83 U/L (46-116); Anion Gap 8 (5-15); BUN/Creatinine Ratio 8.3 (10.0-20.0); Blood Urea Nitrogen 10 mg/dL (9-23); Calcium 9.1 mg/dL (8.7-10.4); Carbon Dioxide 23 mmol/L (20-30); Chloride 105 mmol/L (98-107); Glucose 189 mg/dL (74-106); Potassium 4.2 mmol/L (3.5-5.1); Sodium 136 mmol/L (136-145)
[2024-07-24 06:00] LABS: Albumin 4.2 g/dL (3.2-4.8)
[2024-07-24 06:01] LABS: Aspartate Aminotransferase < 8 U/L (13-40); Bilirubin, Total 0.2 mg/dL (0.2-1.0); Total Protein 6.8 g/dL (5.7-8.2)
[2024-07-24 06:38] LABS: Alanine Aminotransferase < 9 U/L (7-40)
[2024-07-24 07:20] LABS: White Blood Cell 1.5 10^3/uL (4.4-10.8)
[2024-07-24] MEDS: ACCU-CHEK COMFORT CURVE STRIP VI SCH (07:45)
[2024-07-24] MEDS: FAMOTIDINE (10MG/ML) 2ML VL IV SCH (10:25)
[2024-07-24 11:45] VITALS: PULSE 86
[2024-07-24 12:10] LABS: Urine Bacteria None Seen /hpf (None Seen)
[2024-07-24 12:44] LABS: Urine Blood Negative /uL (Negative); Urine Clarity Clear (Clear); Urine Color Yellow (Yellow); Urine Protein, UAD TRACE (Negative); Urine Urobilinogen Normal (Negative); Urine WBC 2 /hpf (0 - 5); Urine pH 5.5 (5.0-9.0)
[2024-07-24 12:53] LABS: Urine Specific Gravity > 1.050 (1.001-1.035)
[2024-07-24] MEDS: cefTRIAXone 1GM/50ML D5W 50 ML IV ONE (14:35)
[2024-07-24] MEDS: AZITHROMYCIN 500MG/ 250ML 250 ML IV ONE ×2 (16:08→16:31)
[2024-07-24 20:00] VITALS: PULSE 93; RESP 14; O2SAT 95
[2024-07-25] VITALS (10 sets, daily range): BP systolic 108–121; BP diastolic 50–66; PULSE 69–96; RESP 16–20; TEMP 98.4–99.3; O2SAT 94–97
[2024-07-25 07:49] LABS: Basophils # (auto) 0 10 ^3/uL (0-0.2); Basophils % (auto) 0.7 % (0.0-2.0); Eosinophils # (auto) 0 10 ^3/uL (0-0.8); Eosinophils % (auto) 1.6 % (0.0-7.0); Hematocrit 30.1 % (36.0-46.0); Hemoglobin 10.3 g/dL (12.2-16.2); Lymphocytes # (auto) 0.9 10 ^3/uL (0.4-5.4); Lymphocytes % (auto) 34.8 % (10.0-50.0); Mean Corpuscular Hemoglobin 32.7 pg (28.0-32.0); Mean Corpuscular Hgb Conc. 34.2 g/dL (32.0-36.0); Mean Corpuscular Volume 95.7 fL (80.0-100.0); Monocytes # (auto) 0.7 10 ^3/uL (0-1.3); Monocytes % (auto) 25.9 % (0.0-12.0); Neutrophils # (auto) 0.9 10 ^3/uL (1.6-8.6); Nucleated Red Blood Cells % 0.1 %; Platelet Count (auto) 259 10^3/uL (140-450); Red Blood Cells 3.15 10^6/uL (4.0-5.20); Red Cell Distribution Width 16.9 % (11.8-14.3); White Blood Cell 2.5 10^3/uL (4.4-10.8)
[2024-07-25 08:06] LABS: Alkaline Phosphatase 75 U/L (46-116); Anion Gap 7 (5-15); Aspartate Aminotransferase 13 U/L (13-40); BUN/Creatinine Ratio 7.6 (10.0-20.0); Bilirubin, Total 0.3 mg/dL (0.2-1.0); Blood Urea Nitrogen 7 mg/dL (9-23); Calcium 9.2 mg/dL (8.7-10.4); Carbon Dioxide 25 mmol/L (20-30); Chloride 107 mmol/L (98-107); Glucose 113 mg/dL (74-106); Sodium 139 mmol/L (136-145); Total Protein 6.1 g/dL (5.7-8.2)
[2024-07-25 08:07] LABS: Alanine Aminotransferase < 9 U/L (7-40)
[2024-07-25 08:12] LABS: Albumin 3.8 g/dL (3.2-4.8)
[2024-07-25] MEDS: cefTRIAXone 1GM/50ML D5W 50 ML IV SCH (09:35)
[2024-07-25] MEDS: AZITHROMYCIN 500MG/ 250ML 250 ML IV SCH (09:35)
[2024-07-26] VITALS (8 sets, daily range): BP systolic 90–121; BP diastolic 50–74; PULSE 81–109; RESP 18–20; TEMP 97.4–98.4; O2SAT 91–98
[2024-07-26 11:25] LABS: INR 1.06 (0.9-1.15); Partial Thromboplastin Time 27.2 SEC (24.5-34.5); Prothrombin Time 11.2 sec (9.3-11.8)
[2024-07-27 01:00] VITALS: BP 108/64; PULSE 94; RESP 17; TEMP 98.2; O2SAT 94
[2024-07-27 05:00] VITALS: BP 125/63; PULSE 89; RESP 18; TEMP 98.1; O2SAT 95
[2024-07-27 09:00] VITALS: BP 125/60; PULSE 82; RESP 16; TEMP 98; O2SAT 96
== END 2024-07-27 10:59 | disposition left against medical advice (07) | DRG 179 ==
LOC: ER 21:40 → TELE 07-24 03:28 → TELE-WESTW 07-24 23:29 → TELE-EAST 07-25 21:02
PROVIDERS: ADMIT Nurse Practitioner Family; ATTEND Internal Medicine
PROC: 0GBH3ZX Excision of Right Thyroid Gland Lobe, Percutaneous Approach, Diagnostic (ICD-10-PCS; principal; 2024-07-27)
DX: J15.69 Pneumonia due to other Gram-negative bacteria (principal); E11.65 Type 2 diabetes mellitus with hyperglycemia; J15.9 Unspecified bacterial pneumonia; I10 Essential (primary) hypertension; K21.9 Gastro-esophageal reflux disease without esophagitis; D70.9 Neutropenia, unspecified; E04.1 Nontoxic single thyroid nodule; T45.1X5A Adverse effect of antineoplastic and immunosuppressive drugs, initial encounter; D64.81 Anemia due to antineoplastic chemotherapy; F41.9 Anxiety disorder, unspecified; E07.9 Disorder of thyroid, unspecified; Z53.29 Procedure and treatment not carried out because of patient's decision for other reasons; Z85.3 Personal history of malignant neoplasm of breast; Z79.899 Other long term (current) drug therapy; Z98.891 History of uterine scar from previous surgery; Z82.49 Family history of ischemic heart disease and other diseases of the circulatory system; Y92.89 Other specified places as the place of occurrence of the external cause
CPT/HCPCS: 36415; 71045; 71275; 76536; 76942; 80053; 81001; 82962; 84436; 84443; 84481; 84484; 85007; 85025; 85027; 85610; 85730; 93005; G0378; J1815; J1885; J2405; J3490

== ENCOUNTER 2024-10-01 13:04 | Inpatient (IN) | payer OTHER, MEDICAID ==
[~2024-10-01] VITALS: Ht 172.7 cm; Wt 106.5 kg
[2024-10-01] MEDS: SODIUM CHLORIDE 0.9% 1,000 ML IV ONE (13:45)
--- NOTE | 2024-10-01 13:45 | DVH ---
EXAM: XY CHEST TWO VIEWS ROUTINE CLINICAL HISTORY: cough COMPARISON: CXR2 on DOS: 11/05/22, CHEST TWO VIEWS ROUTINE on DOS: 11/05/22 TECHNIQUE: Frontal and lateral view of the chest was obtained FINDINGS: Lines and Tubes: None Lungs: No focal consolidation. Pleura: No effusion. No pneumothorax. Cardiomediastinal contours: Unremarkable Pulmonary vasculature: Within normal limits. Bones: No acute osseous abnormality. IMPRESSION: 1. No acute cardiopulmonary disease. HS:Y
[2024-10-01] MEDS: ACETAMINOPHEN 325 MG TAB PO ONE (13:46)
[2024-10-01] MEDS: ONDANSETRON HCL 4 MG/2 ML VIAL IV ONE (13:53)
[2024-10-01 14:01] LABS: Hemoglobin 10.6 g/dL (12.2-16.2)
[2024-10-01 14:03] LABS: Hematocrit 32.4 % (36.0-46.0); Mean Corpuscular Hemoglobin 32.1 pg (28.0-32.0); Mean Corpuscular Hgb Conc. 32.6 g/dL (32.0-36.0); Mean Corpuscular Volume 98.6 fL (80.0-100.0); Platelet Count (auto) 141 10^3/uL (140-450); Red Blood Cells 3.29 10^6/uL (4.0-5.20); Red Cell Distribution Width 17.4 % (11.8-14.3)
[2024-10-01 14:05] LABS: White Blood Cell 1.8 10^3/uL (4.4-10.8)
[2024-10-01 14:07] LABS: Band Neutrophils % (manual) 0; Basophils % (manual) 0 (0.0-2.0); Blast Cells 0; Metamyelocytes % 0; Myelocytes % 0; Promyelocytes % 0; Reactive Lymphocytes 0
[2024-10-01 14:12] LABS: Chloride 106 mmol/L (98-107); Potassium 3.7 mmol/L (3.5-5.1); Sodium 141 mmol/L (136-145)
[2024-10-01 14:13] LABS: Anion Gap 8 (5-15); Carbon Dioxide 27 mmol/L (20-31)
[2024-10-01 14:14] LABS: Calcium 9.3 mg/dL (8.7-10.4)
[2024-10-01 14:18] LABS: BUN/Creatinine Ratio 6.5 (10.0-20.0)
--- NOTE | 2024-10-01 14:24 | ED.PDOC ---
SOB-HPI HPI Comments A 59 year old female presents to the ED with a chief complaint of shortness of breath onset 4 days. Patient states she is experiencing shortness of breath as well as RT sided chest pain, cough, congestion, fatigue and runny nose. Patient has experienced similar symptoms when she had Pneumonia. She has a history of Breast cancer and her last chemo was about 1.5 weeks ago. She has a past medical history of breast cancer, HTN, GERD, HIV, HTN. Denies fever, chills, abdominal pain, nausea, vomiting, diarrhea, constipation. No other symptoms or modifying factors present at this time. 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 History Family History Family History: Reviewed,noncontributory to illness Social History Smoker: Non-Smoker Alcohol: Denies ETOH Use Drugs: Marijuana, Methamphetamine Lives In: Home Constitutional: reports: fatigue; denies: chills, diaphoresis, fever, malaise, sweats, weakness, others EENTM: reports: nasal discharge, nose congestion; denies: blurred vision, double vision, ear bleeding, ear discharge, ear drainage, ear pain, ear ringing, eye pain, eye redness, hearing loss, mouth pain, mouth swelling, nose bleeding, nose pain, photophobia, tearing, throat pain, throat swelling, voice changes, others Respiratory: reports: cough, shortness of breath; denies: hemoptysis, orthopnea, SOB at rest, SOB with excertion, stridor, wheezing, others Cardiovascular: reports: chest pain; denies: dizzy spells, diaphoresis, Dyspnea on exertion, edema, irregular heart beat, left arm pain, lightheadedness, palpitations, PND, syncope, others Gastrointestinal: denies: abdomen distended, abdominal pain, blood streaked bowels, constipated, diarrhea, dysphagia, difficulty swallowing, hematemesis, melena, nausea, poor appetite, poor fluid intake, rectal bleeding, rectal pain, vomiting, others Genitourinary: denies: abnormal vagina bleeding, burning, dyspareunia, dysuria, flank pain, frequency, hematuria, incontinence, pain, , vagina discharge, urgency, others Neurological: denies: dizziness, fainting, headache, left sided numbness, left sided weakness, numbness, paresthesia, pre-existing deficit, right sided numbness, right sided weakness, seizure, speech problems, tingling, tremors, weakness, others Musculoskeletal: denies: back pain, gout, joint pain, joint swelling, muscle pain, muscle stiffness, neck pain, others Integumetry: denies: bruises, change in color, change in hair/nails, dryness, laceration, lesions, lumps, rash, wounds, others Allergic/Immunocompromised: denies: Difficulty Healing, Frequent Infections, Hives, Itching, others Hematologic/Lymphatic: denies: anemia, blood clots, easy bleeding, easy bruising, swollen glands, others Endocrine: denies: excessive hunger, excessive sweating, excessive thirst, excessive urination, flushing, intolerance to cold, intolerance to heat, unexplained weight gain, unexplained weight loss, others Psychiatric: denies: anxiety, bipolar disorder, depression, hopeless, panic disorder, schizophrenia, sleepless, suicidal, others All Other Systems: Reviewed and Negative Physical Exam General Appearance: No Apparent Distress, Normal HEENT: Pharynx Normal, TMs Normal, Other (nasal congestion) Neck: Full Range of Motion, Non-Tender, Normal, Normal Inspection Respiratory: Chest Non-Tender, Lungs Clear, No Accessory Muscle Use, No Respiratory Distress, Normal Breath Sounds Cardiovascular: No Edema, No JVD, No Murmur, No Gallop, Tachycardia, Other (RT chest wall port) Breast Exam: Deferred Gastrointestinal: No Organomegaly, Non Tender, No Pulsatile Mass, Normal Bowel Sounds, Soft Genitalia: Deferred Pelvic: Deferred Rectal: Deferred Extremities: No calf tenderness, Normal capillary refill, Normal inspection, Normal range of motion, Non-tender, No pedal edema Musculoskeletal : Apperance: Normal Neurologic: Alert, joinery setter out II-XII nml as Tested, No Motor Deficits, Normal Affect, Normal Mood, No Sensory Deficits Cerebellar Function: Normal Reflexes: Normal Skin: Dry, Normal Color, Warm Lymphatic: No Adenopathy Was a procedure done? Was a procedure done?: No Differential Dx Differential Diagnosis: Bronchitis, CHF, COPD, Hypertension, Hyponatremia, Pneumonia, Respiratory Distress, Sinusitis, URI X-Ray, Labs, Meds, VS Vital Signs Date Time Temp Pulse Resp B/P (MAP) Pulse Ox O2 Delivery O2 Flow Rate FiO2 10/01/24 14:52 98.7 10/01/24 13:50 98 17 95 Room Air 10/01/24 13:50 98.9 98 17 120/66 (84) 95 98.9 10/01/24 13:46 98.9 10/01/24 13:27 99.4 119 19 116/84 (95) 96 10/01/24 13:26 19 96 Room Air* 0 21 10/01/24 13:23 104 Lab Test 10/01/24 13:55 10/01/24 13:49 10/01/24 13:44 Range/Units Influenza Type A Antigen Negative Negative Influenza Type B Antigen Negative Negative SARS-CoV-2 Antigen (Rapid) Negative NEGATIVE Lactic Acid Level 0.9 0.4-2.0 mmol/L White Blood Count 1.8 *L 4.4-10.8 10^3/uL Red Blood Count 3.29 L 4.0-5.20 10^6/uL Hemoglobin 10.6 L 12.2-16.2 g/dL Hematocrit 32.4 L 36.0-46.0 % Mean Corpuscular Volume 98.6 80.0-100.0 fL Mean Corpuscular Hemoglobin 32.1 H 28.0-32.0 pg Mean Corpuscular Hemoglobin Concent 32.6 32.0-36.0 g/dL Red Cell Distribution Width 17.4 H 11.8-14.3 % Platelet Count 141 140-450 10^3/uL Mean Platelet Volume 9.4 6.9-10.8 fL Neutrophils (%) (Auto) 37.0-80.0 % Lymphocytes (%) (Auto) 10.0-50.0 % Monocytes (%) (Auto) 0.0-12.0 % Basophils (%) (Auto) 0.0-2.0 % Neutrophils # (Auto) 1.6-8.6 10 ^3/uL Lymphocytes # (Auto) 0.4-5.4 10 ^3/uL Monocytes # (Auto) 0-1.3 10 ^3/uL Differential Total Cells Counted 100.0 100 Neutrophils % (Manual) 5 L 37.0-80.0 Band Neutrophils % (Manual) 0 Lymphocytes % (Manual) 69 H 10.0-50.0 Monocytes % (Manual) 24 H 0-12 Eosinophils % (Manual) 2 0-7 Basophils % (Manual) 0 0.0-2.0 Metamyelocytes % (manual) 0 Myelocytes % (Manual) 0 Promyelocytes % (Manual) 0 Blast Cells % (Manual) 0 Reactive Lymphocytes 0 Platelet Estimate Decreased Sodium Level 141 136-145 mmol/L Potassium Level 3.7 3.5-5.1 mmol/L Chloride Level 106 98-107 mmol/L Carbon Dioxide Level 27 20-31 mmol/L Anion Gap 8 5-15 Blood Urea Nitrogen 6 L 9-23 mg/dL Creatinine 0.93 0.550-1.02 mg/dL Glomerular Filtration Rate Calc 71 >90 mL/min BUN/Creatinine Ratio 6.5 L 10.0-20.0 Serum Glucose 141 H 74-106 mg/dL Calcium Level 9.3 8.7-10.4 mg/dL Current Medications Medications (Trade) Dose Ordered Sig/Hiwot Route Start Time Stop Time Status Last Admin Acetaminophen (Tylenol Tablet) 650 mg ONCE ONCE PO 10/01/24 13:30 10/01/24 13:31 DC 10/01/24 13:46 Ondansetron HCl (Zofran) 4 mg ONCE ONCE IV 10/01/24 13:30 10/01/24 13:31 DC 10/01/24 13:53 Sodium Chloride 1,000 ml @ 1,000 mls/hr Q1H ONCE IV 10/01/24 13:30 10/01/24 14:29 DC 10/01/24 13:[address] [address] Ph: [phone] DIAGNOSTIC IMAGING Diagnostic Imaging Report : [id number] Signed PATIENT: LAQUITA GERARD ACCT: [id number] UNIT: [id number] : 1965 LOC: ER ROOM / BED: / AGE / SEX: 59 / F ADM STATUS: REG ER SERVICE 1316 ORDERING PHYSICIAN: ZELALEM YANG MD PROCEDURE(s): CXR2 - CHEST TWO VIEWS ROUTINE REASON: cough ORDER NUMBER(s): [id number], ACCESSION NUMBER(s): [id number] EXAM: XY CHEST TWO VIEWS ROUTINE CLINICAL HISTORY: cough COMPARISON: CXR2 on DOS: 11/05/22, CHEST TWO VIEWS ROUTINE on DOS: 11/05/22 TECHNIQUE: Frontal and lateral view of the chest was obtained FINDINGS: Lines and Tubes: None Lungs: No focal consolidation. Pleura: No effusion. No pneumothorax. Cardiomediastinal contours: Unremarkable Pulmonary vasculature: Within normal limits. Bones: No acute osseous abnormality. IMPRESSION: 1. No acute cardiopulmonary disease. HS:Y ATED BY: TENZIN DUBOIS MD DICTATED DATE/TIME: 10/01/241343 SIGNED BY: TENZIN DUBOIS MD SIGNED DATE/TIME: 10/01/241343 CC: Time of 1ST Reevaluation: 14:05 Reevaluation 1ST: Unchanged Patient Education/Counseling: Diagnosis, Treatment, Prognosis Family Education/Counseling: No Family Present Additional Information HI DATA VOL/COMPLEXITY:>2 External Notes- Ordered Test- XY, LAB, PHA, EKG Reviewed Results: BMP, CBC, UA, LA w/ reflex, Blood culture, COVID, Influenza A/B, Manual differential Interpreted Results- XY Discuss Tx/Results- medical personnel, patient Departure 1 Departure Time of Disposition: 15:46 (Patient presented with acute shortness of breath concerning for acute on chronic COPD Exacerbation, Pneumonia, ACS, CHF, Pneumothorax. Less likely PE, Dissection. Patient does not appear septic at this time.Data: 1. I ordered and reviewed the result of at least 3 labs including a CBC, BMP, and Troponin. 2. I independently interpreted the following tests: Chest X-ray appears clear.Risk:This patient has a high risk of morbidity due to further diagnostic testing or treatment and may suffer from respiratory or cardiac etiology . Workup reveals a neutropenia and symptoms of pneumonia, patient will be started on antibiotics, admitted for further workup and possible expert consultation.) Impression: Primary Impression: Neutropenia Qualified Codes: D70.1 - Agranulocytosis secondary to cancer chemotherapy; T45.1X5A - Adverse effect of antineoplastic and immunosuppressive drugs, initial encounter Additional Impressions: Cough Qualified Codes: R05.1 - Acute cough Weakness Pneumonia Qualified Codes: J18.9 - Pneumonia, unspecified organism Disposition: ADMITTED INPATIENT Admit to: Med Surg Condition: Serious Critical Care Note Critical Care Time?: No Stability Stability form required: No Heart Score Heart Score: Heart Score Response (Comments) Value History Slightly Suspicious 0 EKG Repolarization Disturb 1 Age 45-64 1 Risk Factors >3 or Hx ASHD 2 Troponin 1-2 x's Normal limit 1 Total 5 I personally scribed for ZELALEM YANG MD ([email or web address]) on 10/01/24 at 14:24. Electronically submitted by Aaliyah Carl ([email or web address]). I personally scribed for ZELALEM YANG MD ([email or web address]) on 10/01/24 at 14:32. Electronically submitted by Aaliyah Carl ([email or web address]). ZELALEM YANG MD Oct 01, 2024 14:24
[2024-10-01 14:26] LABS: Blood Urea Nitrogen 6 mg/dL (9-23); Glucose 141 mg/dL (74-106)
[2024-10-01 14:36] LABS: Eosinophils % (manual) 2 (0-7); Lymphocytes % (manual) 69 (10.0-50.0); Monocytes % (manual) 24 (0-12)
[2024-10-01 14:37] LABS: Platelet Estimate Decreased
[2024-10-01 14:42] LABS: COVID19 ANTIGEN SOFIA FIA NEGATIVE (NEGATIVE)
[2024-10-01 14:43] LABS: Rapid Influenza A Negative (Negative); Rapid Influenza B Negative (Negative)
[2024-10-01] MEDS ORDERED: LORazepam 0.5 MG TAB PO PRN (16:00)
[2024-10-01] MEDS ORDERED: HYDROcodone-ACET 5/325MG TAB PO PRN (16:00)
[2024-10-01] MEDS ORDERED: TEMAZEPAM 15 MG CAP PO PRN (16:00)
[2024-10-01] MEDS ORDERED: MORPHINE SULFATE INJ 2 MG/ml SYRG IV PRN (16:00)
[2024-10-01] MEDS ORDERED: DEXTROSE (50%) 50ML SYRG IV PRN (16:00)
[2024-10-01] MEDS ORDERED: DOCUSATE SOD 100 MG CAP PO PRN (16:00)
[2024-10-01] MEDS ORDERED: VANCOMYCIN PER PHARMACY 0 MG IV SCH (16:00)
[2024-10-01] MEDS: SODIUM CHLORIDE 0.9% 1,000 ML IV SCH (16:00)
[2024-10-01] MEDS: ACCU-CHEK COMFORT CURVE STRIP VI SCH (16:00)
[2024-10-01] MEDS ORDERED: ONDANSETRON HCL 4 MG/2 ML VIAL IV PRN (16:00)
[2024-10-01] MEDS: InsuLIN REG 1unit/0.01ml Soln (100units/ml) SC SCH (16:00)
[2024-10-01] MEDS ORDERED: ACETAMINOPHEN 325 MG TAB PO PRN (16:00)
--- NOTE | 2024-10-01 16:31 | DVHHP2 ---
History of Present Illness Reason for Visit: Shortness of breaths History of Present Illness 59-year-old morbidly obese patient with a past medical history of breast cancer, hypertension, GERD, HIV, comes to the ED for evaluation of shortness of breath for the past few days patient states that she has been having cough cold con gestion runny nose does have a longstanding history of neutropenia and agranulocytosis patient currently on chemotherapy for the management of breast cancer and continues to have a low white count patient also has a history of HIV which she is treated with for Genvoya patient as of now continues to have shortness of breath last time admitted to the hospital with something very jc lar with suspected pneumonia at this point in time patient was referred to admission by the ED for continued management and care Cardiovascular: CHF, HTN Heme/Onc: Cancer Infectious disease: HIV Review of Systems Constitutional: Yes: Weakness; No: Fever, Chills, Sweats, Malaise, Other Eyes: No: Pain, Vision change, Conjunctivae inflammation, Eyelid inflammation, Other, Redness ENT: No: Ear pain, Ear discharge, Nose pain, Nose discharge, Nose congestion, Mouth pain, Mouth swelling, Throat pain, Throat swelling, Other Respiratory: Cough, Shortness of breath; No: Dry, SOB with excertion, Wheezing, Hemoptysis, Pleuritic Pain, Sputum, Wheezing, Other Cardiovascular: Chest Pain, Palpitations; No: Orthopnea, Paroxysmal Noc. Dyspnea, Edema, Lt Headedness, Other Gastrointestinal: No: Nausea, Vomiting, Abdominal Pain, Diarrhea, Constipation, Melena, Hematochezia, Other Genitourinary: No Dysuria, No Frequency, No Incontinence, No Hematuria, No Retention, No Other Musculoskeletal: No: other, neck pain, shoulder pain, arm pain, back pain, hand pain, leg pain, foot pain Skin: No: Rash, Lesions, Jaundice, Bruising, Other Neurological: No: Weakness, Numbness, Incoordination, Change in speech, Confusion, Seizures, Other Allergies: Coded Allergies: NO KNOWN ALLERGIES (Unverified , 03/30/24) Exam Vital Signs Vital Signs Date Time Temp Pulse Resp B/P (MAP) Pulse Ox O2 Delivery O2 Flow Rate FiO2 10/01/24 14:52 98.7 10/01/24 13:50 98 17 95 Room Air 10/01/24 13:50 120/66 (84) 10/01/24 13:26 0 21 General Appearance: Alert, Oriented X3, moderate distress HEENT: Atraumatic, PERRLA, EOMI Respiratory: Clear to auscultation, Normal air movement Cardiovascular: Regular rate, Normal S1, Normal S2 Abdominal: Normal bowel sounds, Soft Extremities: No clubbing, No cyanosis Skin: No rashes, No breakdown Neuro: Normal gait, Normal speech Psych/Mental Status: Mood NL Labs/Xrays Labs Test 10/01/24 13:55 10/01/24 13:49 10/01/24 13:44 Range/Units Influenza Type A Antigen Negative Negative Influenza Type B Antigen Negative Negative SARS-CoV-2 Antigen (Rapid) Negative NEGATIVE Lactic Acid Level 0.9 0.4-2.0 mmol/L White Blood Count 1.8 *L 4.4-10.8 10^3/uL Red Blood Count 3.29 L 4.0-5.20 10^6/uL Hemoglobin 10.6 L 12.2-16.2 g/dL Hematocrit 32.4 L 36.0-46.0 % Mean Corpuscular Volume 98.6 80.0-100.0 fL Mean Corpuscular Hemoglobin 32.1 H 28.0-32.0 pg Mean Corpuscular Hemoglobin Concent 32.6 32.0-36.0 g/dL Red Cell Distribution Width 17.4 H 11.8-14.3 % Platelet Count 141 140-450 10^3/uL Mean Platelet Volume 9.4 6.9-10.8 fL Neutrophils (%) (Auto) 37.0-80.0 % Lymphocytes (%) (Auto) 10.0-50.0 % Monocytes (%) (Auto) 0.0-12.0 % Basophils (%) (Auto) 0.0-2.0 % Neutrophils # (Auto) 1.6-8.6 10 ^3/uL Lymphocytes # (Auto) 0.4-5.4 10 ^3/uL Monocytes # (Auto) 0-1.3 10 ^3/uL Differential Total Cells Counted 100.0 100 Neutrophils % (Manual) 5 L 37.0-80.0 Band Neutrophils % (Manual) 0 Lymphocytes % (Manual) 69 H 10.0-50.0 Monocytes % (Manual) 24 H 0-12 Eosinophils % (Manual) 2 0-7 Basophils % (Manual) 0 0.0-2.0 Metamyelocytes % (manual) 0 Myelocytes % (Manual) 0 Promyelocytes % (Manual) 0 Blast Cells % (Manual) 0 Reactive Lymphocytes 0 Platelet Estimate Decreased Sodium Level 141 136-145 mmol/L Potassium Level 3.7 3.5-5.1 mmol/L Chloride Level 106 98-107 mmol/L Carbon Dioxide Level 27 20-31 mmol/L Anion Gap 8 5-15 Blood Urea Nitrogen 6 L 9-23 mg/dL Creatinine 0.93 0.550-1.02 mg/dL Glomerular Filtration Rate Calc 71 >90 mL/min BUN/Creatinine Ratio 6.5 L 10.0-20.0 Serum Glucose 141 H 74-106 mg/dL Calcium Level 9.3 8.7-10.4 mg/dL Assessment/Plan Assessment/Plan Admit to [facility] Suspected community-acquired pneumonia IV antibiotics cefepime t.i.d. Vancomycin b.i.d. as per pharmacy Patient evaluated for flu a flu B negative Evaluated for COVID negative History of COPD History of breast cancer currently on chemo Longstanding history of agranulocytosis Patient with a white count of 1.8 We will follow with neutropenic precautions Likely pneumonia in the setting of COPD exacerbation with acute on chronic respiratory distress History of CHF No acute signs of fluid overload at this time Monitor for signs of fluid overload Continue with home medication Continue with diuretics as required Morbidly obese BMI greater than 35 History of breast cancer Patient with longstanding agranulocytosis Continued on an outpatient basis for cancer and chemotherapy management Neutropenic precautions while inpatient Patient stated to follow up with Oncology and Hematology on outpatient basis Rule out occult other acute causes of infection UA pending Patient takes daily azithromycin for agranulocytosis management Plan discussed with: Patient My Orders Orders - JOHN MOORE MD Procedure Category Date Status Time Azithromycin Tablet PHA 10/02/24 In Process (Zithromax Tablet) 10:00 (NF) PHA 10/02/24 Logged Reelizmwzurh-Ihzjfkimex-Oyqkkv 10:00 (Nf) Hydroxyzine Hcl PHA 10/01/24 Logged 22:00 (Nf) Prednisone PHA 10/02/24 Logged 10:00 Albuterol Medneb PHA 10/01/24 In Process (Ventolin Medneb) 16:00 Ipratropium Medneb PHA 10/01/24 In Process (Atrovent Medneb) 16:00 Med Neb Initial RT 10/01/24 Logged Treatment 15:52 Glucose Blood PHA 10/01/24 In Process (Accu-Chek Comfort 16:00 Insulin R (Human) PHA 10/01/24 In Process (Insulin R) 16:00 Dextrose 50% Syringe PHA 10/01/24 In Process 16:00 Cefepime 1gm/ 50ml PHA 10/01/24 In Process (Maxipime 1gm/50ml) 22:00 Vancomycin Per PHA 10/01/24 Logged Pharmacy 16:00 Admit ADMIT 10/01/24 Transmitted 15:52 Code Status CODE 10/01/24 Transmitted 15:52 Vital Signs TANYA 10/01/24 In Process 15:52 Review Orders With TANYA 10/01/24 In Process Adm.Md 15:52 Consistent DIET 10/01/24 Transmitted Carb(Ccho)Diabetes Dinner Sodium Chloride 0.9% PHA 10/01/24 In Process 16:00 Lorazepam Tablet PHA 10/01/24 In Process (Ativan Tablet) 16:00 Alum & Mag PHA 10/01/24 In Process Hydrox-Simethicone 16:00 Docusate Sodium PHA 10/01/24 In Process Capsule (Colace 16:00 Acetaminophen Tablet PHA 10/01/24 In Process (Tylenol Tablet) 16:00 Temazepam (Restoril) PHA 10/01/24 In Process 16:00 Notify Of Changes TANYA 10/01/24 In Process From Base 15:52 Advance Directive TANYA 10/01/24 In Process 15:52 Basic Metabolic Panel LAB 10/02/24 Verified 04:00 Complete Blood Count LAB 10/02/24 Verified 04:00 Patient Condition ORDERS 10/01/24 Transmitted 15:52 Allergies TANYA 10/01/24 In Process 15:52 Hydrocodone-Acet PHA 10/01/24 In Process 5/325mg Tab ([place] 16:00 Ondansetron Hcl PHA 10/01/24 In Process (Zofran) 16:00 Morphine Sulfate PHA 10/01/24 In Process Injection 16:00 Notify Of Changes TANYA 10/01/24 In Process From Base 15:52 Oxygen By Nasal RT 10/01/24 Transmitted Cannula 15:52 Problem List: (1) Right lower lobe pneumonia (2) Neutrophilic leukocytosis (3) Diabetic nephropathy (4) Shortness of breath (5) Generalized weakness (6) Morbid obesity due to excess calories (7) Leukopenia (8) Diabetes mellitus with hyperglycemia (9) Pneumonia Date of Service: Oct 01, 2024 Billing Provider: JOHN MOORE MD Common Visit Codes: [id number] INP/OBS CARE (HIGH) JOHN MOORE MD Oct 01, 2024 16:31
[2024-10-01] MEDS: AZITHROMYCIN 250 MG TAB PO ONE (17:24)
[2024-10-01] MEDS: VANCOMYCIN 1GM/250ML KIT 200 ML IV ONE (17:53)
[2024-10-01] MEDS: CEFEPIME 2GM/50ML NS 50 ML IV ONE (19:17)
[2024-10-01 20:22] VITALS: PULSE 86; RESP 17; O2SAT 100
[2024-10-01] MEDS: ALBUTEROL SULF 2.5 MG/0.5ML(0.5%) NEB SOLN NEB PRN (20:22)
[2024-10-01] MEDS: IPRATROPIUM BROM 0.5 MG/2.5ML INH SOL NEB PRN (20:22)
[2024-10-01 20:28] VITALS: PULSE 85; RESP 18; O2SAT 100
[2024-10-01 20:41] VITALS: PULSE 92; RESP 18; O2SAT 95
[2024-10-01] MEDS ORDERED: hydrOXYzine 25 MG TAB or CAP PO PRN (22:00)
[2024-10-01 22:10] VITALS: BP 141/67; PULSE 103; RESP 16; TEMP 98.4; O2SAT 95
[2024-10-01] MEDS: CEFEPIME 1GM/ 50ML 50 ML IV SCH (22:15)
[2024-10-01 22:25] VITALS: BP 141/67; PULSE 103; RESP 19; TEMP 98.4; O2SAT 95
[2024-10-01] MEDS ORDERED: LISI2.5T47 PO (22:41)
[2024-10-01] MEDS ORDERED: OMEP20TA PO (22:41)
[2024-10-01] MEDS ORDERED: CHOL20007 PO (22:41)
[2024-10-01] MEDS ORDERED: EMPA1TAB PO (22:41)
[2024-10-01] MEDS ORDERED: ATOR20TA50 PO (22:41)
[2024-10-01 22:48] LABS: Urine Bacteria FEW /hpf (None Seen); Urine Blood Negative /uL (Negative); Urine Clarity Clear (Clear); Urine Color Colorless (Yellow); Urine Protein, UAD Negative (Negative); Urine Specific Gravity 1.012 (1.001-1.035); Urine Urobilinogen Normal (Negative); Urine WBC 1 /hpf (0 - 5)
[2024-10-02] VITALS (10 sets, daily range): BP systolic 71–141; BP diastolic 63–67; PULSE 74–103; RESP 16–20; TEMP 97.9–98.2; O2SAT 92–98
[2024-10-02] MEDS: VANCOMYCIN 1GM/250ML KIT 200 ML IV ONE (05:29)
[2024-10-02] MEDS: VANCOMYCIN 1.25GM/250ML 250 ML IV SCH (05:39)
[2024-10-02] MEDS: VANCOMYCIN 1GM/250ML KIT 50 ML IV ONE (06:31)
[2024-10-02] MEDS: AZITHROMYCIN 250 MG TAB PO SCH (08:29)
[2024-10-02 08:46] LABS: Basophils # (auto) 0 10 ^3/uL (0-0.2); Eosinophils # (auto) 0 10 ^3/uL (0-0.8); Monocytes # (auto) 0.4 10 ^3/uL (0-1.3); Neutrophils # (auto) 0.1 10 ^3/uL (1.6-8.6)
[2024-10-02 08:48] LABS: Basophils % (auto) 1.4 % (0.0-2.0); Eosinophils % (auto) 2.1 % (0.0-7.0); Hematocrit 29.1 % (36.0-46.0); Hemoglobin 9.6 g/dL (12.2-16.2); Mean Corpuscular Hemoglobin 32.6 pg (28.0-32.0); Mean Corpuscular Hgb Conc. 33.1 g/dL (32.0-36.0); Mean Corpuscular Volume 98.5 fL (80.0-100.0); Neutrophils % (auto) 8.7 % (37.0-80.0); Nucleated Red Blood Cells % 0.4 %; Platelet Count (auto) 144 10^3/uL (140-450); Red Blood Cells 2.96 10^6/uL (4.0-5.20); Red Cell Distribution Width 17.4 % (11.8-14.3)
[2024-10-02 09:05] LABS: Lymphocytes % (auto) 61.6 % (10.0-50.0); Monocytes % (auto) 26.2 % (0.0-12.0); White Blood Cell 1.6 10^3/uL (4.4-10.8)
[2024-10-02 09:09] LABS: Potassium 4.2 mmol/L (3.5-5.1); Sodium 140 mmol/L (136-145)
[2024-10-02 09:10] LABS: Anion Gap 6 (5-15); Carbon Dioxide 26 mmol/L (20-31)
[2024-10-02 09:15] LABS: Chloride 108 mmol/L (98-107)
[2024-10-02 09:16] LABS: Blood Urea Nitrogen 8 mg/dL (9-23); Glucose 113 mg/dL (74-106)
[2024-10-02] MEDS: ELVITEGRAVIR COBICISTAT EMTRIC PO SCH (10:00)
[2024-10-02] MEDS ORDERED: predniSONE 20 MG TAB PO SCH (10:00)
--- NOTE | 2024-10-02 15:09 | DVHPN2 ---
Reviewed: Care Plan, H&P, Labs, Medications, Previous Orders, Radiology Changes from previous H/P or p: No Changes Eyes: No Pain, No Vision change, No Conjunctivae inflammation, No Eyelid inflammation, No Other, No Redness ENT: No Ear pain, No Ear discharge, No Nose pain, No Nose discharge, No Nose congestion, No Mouth pain, No Mouth swelling, No Throat pain, No Throat swelling, No Other Cardiovascular: Chest Pain, Palpitations; No Orthopnea, No Paroxysmal Noc. Dyspnea, No Edema, No Lt Headedness, No Other Respiratory: Cough; No Dry; Shortness of breath; No SOB with excertion, No Wheezing, No Hemoptysis, No Pleuritic Pain, No Sputum, No Other Gastrointestinal: No Nausea, No Vomiting, No Abdominal Pain, No Diarrhea, No Constipation, No Melena, No Hematochezia, No Other Genitourinary: No Dysuria, No Frequency, No Incontinence, No Hematuria, No Retention, No Other Musculoskeletal: No other, No neck pain, No shoulder pain, No arm pain, No back pain, No hand pain, No leg pain, No foot pain Skin: No Rash, No Lesions, No Jaundice, No Bruising, No Other Objective Vitals Vital Signs Date Time Temp Pulse Resp B/P (MAP) Pulse Ox O2 Delivery O2 Flow Rate FiO2 10/02/24 12:53 97.9 89 18 122/65 (84) 97 97.9 10/02/24 07:52 Room Air* 0 21 Intake/Output Intake and Output 10/02/24 07:00 Intake Total 650 ml Balance 650 ml Intake Oral 400 ml IV Total 250 ml Medications Current Medications Medications Dose Ordered Sig/Hiwot Route Start Time Stop Time Status Last Admin Dose Admin Azithromycin 250 mg DAILY PO 10/02/24 10:00 10/02/24 08:29 250 MG Patient Own Medication 1 tab DAILY PO 10/02/24 10:00 Hydroxyzine Pamoate 25 mg BIDPRN PRN PO 10/01/24 22:00 Prednisone 20 mg DAILY PO 10/02/24 10:00 Hold Albuterol 2.5 mg Q4HWA PRN NEB 10/01/24 16:00 10/01/24 20:22 2.5 MG Ipratropium [place] 0.5 mg Q4HWA PRN NEB 10/01/24 16:00 10/01/24 20:22 0.5 MG Diagnostic Test (Pha) 1 strip IQ4HR 10/01/24 16:00 10/02/24 11:58 1 STRIP Insulin Human Regular IQ4HR SC 10/01/24 16:00 10/02/24 11:52 2 UNITS Dextrose 50 ml UD PRN IV 10/01/24 16:00 Cefepime HCl 50 ml @ 12.5 mls/hr Q8HR IV 10/01/24 22:00 10/02/24 13:51 12.5 MLS/HR Vancomycin HCl 0 ml @ 0 mls/hr UD IV 10/01/24 16:00 Sodium Chloride 1,000 ml @ 60 mls/hr [id number] IV 10/01/24 16:00 10/02/24 08:50 60 MLS/HR Lorazepam 0.5 mg Q6HP PRN PO 10/01/24 16:00 Al Hydrox/Mg Hydrox/Simethicone 30 ml Q6HP PRN PO 10/01/24 16:00 Docusate Sodium 100 mg BIDPRN PRN PO 10/01/24 16:00 Acetaminophen 650 mg Q6HP PRN PO 10/01/24 16:00 Temazepam 15 mg QHSP PRN PO 10/01/24 16:00 Acetaminophen/ Hydrocodone Bitart 1 tab Q4HP PRN PO 10/01/24 16:00 Ondansetron HCl 4 mg Q4HP PRN IV 10/01/24 16:00 Morphine Sulfate 2 mg Q4HPRN PRN IV 10/01/24 16:00 Vancomycin HCl 250 ml @ 200 mls/hr Q12H IV 10/02/24 06:00 Laboratory Results Laboratory Tests 10/02/24 08:36 Chemistry Test 10/02/24 08:36 Calcium Level 9.0 mg/dL (8.7-10.4) Urinalysis Test 10/01/24 20:30 Urine Color Colorless (Yellow) Urine Clarity Clear (Clear) Urine pH 6.0 (5.0-9.0) Urine Specific [place] 1.012 (1.001-1.035) Urine Protein Negative (Negative) Urine Ketones Negative (Negative) Urine Blood Negative /uL (Negative) Urine Nitrite Negative (Negative) Urine Bilirubin Negative (Negative) Urine Urobilinogen Normal mg/dL (Negative) Urine Leukocyte Esterase Negative /uL (Negative) Urine RBC 1 /hpf (0 - 4) Urine WBC 1 /hpf (0 - 5) Urine Squamous Epithelial Cells Few /hpf (<5) Urine Bacteria Few /hpf (None Seen) H Urine Glucose Trace mg/dL (Normal) Microbiology Microbiology Date/Time Source Procedure Growth Status 10/01/24 13:53 Blood Blood Culture - Preliminary NO GROWTH AFTER 24 HOURS OF INCUBATION. 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
[2024-10-03] VITALS (7 sets, daily range): BP systolic 101–127; BP diastolic 54–70; PULSE 89–109; RESP 16–20; TEMP 97.7–98.7; O2SAT 91–100
[2024-10-03 05:16] LABS: Hematocrit 28.6 % (36.0-46.0); Hemoglobin 9.8 g/dL (12.2-16.2); Mean Corpuscular Hemoglobin 33.2 pg (28.0-32.0); Mean Corpuscular Hgb Conc. 34.4 g/dL (32.0-36.0); Mean Corpuscular Volume 96.6 fL (80.0-100.0); Platelet Count (auto) 165 10^3/uL (140-450); Red Blood Cells 2.96 10^6/uL (4.0-5.20); Red Cell Distribution Width 17.6 % (11.8-14.3)
[2024-10-03 05:20] LABS: Band Neutrophils % (manual) 0; Basophils % (manual) 0 (0.0-2.0); Blast Cells 0; Metamyelocytes % 0; Myelocytes % 0; Promyelocytes % 0; Reactive Lymphocytes 0
[2024-10-03 06:48] LABS: Eosinophils % (manual) 1 (0-7); Lymphocytes % (manual) 57 (10.0-50.0); Monocytes % (manual) 24 (0-12); Platelet Estimate Adequate
[2024-10-03] MEDS: MAALOX PLUS or MAALOX 30 ML PO PRN (08:47)
[2024-10-03] MEDS: cefTRIAXone 1GM/50ML D5W 50 ML IV ONE (09:15)
--- NOTE | 2024-10-03 09:15 | DVHPN2 ---
Reviewed: Care Plan, H&P, Labs, Medications, Previous Orders, Radiology Changes from previous H/P or p: No Changes Eyes: No Pain, No Vision change, No Conjunctivae inflammation, No Eyelid inflammation, No Other, No Redness ENT: No Ear pain, No Ear discharge, No Nose pain, No Nose discharge, No Nose congestion, No Mouth pain, No Mouth swelling, No Throat pain, No Throat swelling, No Other Cardiovascular: Chest Pain, Palpitations; No Orthopnea, No Paroxysmal Noc. Dyspnea, No Edema, No Lt Headedness, No Other Respiratory: Cough; No Dry; Shortness of breath; No SOB with excertion, No Wheezing, No Hemoptysis, No Pleuritic Pain, No Sputum, No Other Gastrointestinal: No Nausea, No Vomiting, No Abdominal Pain, No Diarrhea, No Constipation, No Melena, No Hematochezia, No Other Genitourinary: No Dysuria, No Frequency, No Incontinence, No Hematuria, No Retention, No Other Musculoskeletal: No other, No neck pain, No shoulder pain, No arm pain, No back pain, No hand pain, No leg pain, No foot pain Skin: No Rash, No Lesions, No Jaundice, No Bruising, No Other Objective Vitals Vital Signs Date Time Temp Pulse Resp B/P (MAP) Pulse Ox O2 Delivery O2 Flow Rate FiO2 10/03/24 08:00 Room Air* 0 21 10/03/24 05:00 98.7 98 17 123/70 (87) 93 98.7 Intake/Output Intake and Output 10/03/24 07:00 Intake Total 2910 ml Output Total 1 ml Balance 2909 ml Intake Oral 1850 ml IV Total 1060 ml Output Stool Total 1 ml # Voids 6 Medications Current Medications Medications Dose Ordered Sig/Hiwot Route Start Time Stop Time Status Last Admin Dose Admin Azithromycin 250 mg DAILY PO 10/02/24 10:00 10/03/24 08:37 250 MG Patient Own Medication 1 tab DAILY PO 10/02/24 10:00 Hydroxyzine Pamoate 25 mg BIDPRN PRN PO 10/01/24 22:00 Prednisone 20 mg DAILY PO 10/02/24 10:00 Hold Albuterol 2.5 mg Q4HWA PRN NEB 10/01/24 16:00 10/01/24 20:22 2.5 MG Ipratropium [place] 0.5 mg Q4HWA PRN NEB 10/01/24 16:00 10/01/24 20:22 0.5 MG Diagnostic Test (Pha) 1 strip IQ4HR 10/01/24 16:00 10/03/24 08:00 1 STRIP Insulin Human Regular IQ4HR SC 10/01/24 16:00 10/03/24 05:15 2 UNITS Dextrose 50 ml UD PRN IV 10/01/24 16:00 Cefepime HCl 50 ml @ 12.5 mls/hr Q8HR IV 10/01/24 22:00 10/03/24 05:04 12.5 MLS/HR Vancomycin HCl 0 ml @ 0 mls/hr UD IV 10/01/24 16:00 Sodium Chloride 1,000 ml @ 60 mls/hr [id number] IV 10/01/24 16:00 10/03/24 01:20 60 MLS/HR Lorazepam 0.5 mg Q6HP PRN PO 10/01/24 16:00 Al Hydrox/Mg Hydrox/Simethicone 30 ml Q6HP PRN PO 10/01/24 16:00 10/03/24 08:47 30 ML Docusate Sodium 100 mg BIDPRN PRN PO 10/01/24 16:00 Acetaminophen 650 mg Q6HP PRN PO 10/01/24 16:00 Temazepam 15 mg QHSP PRN PO 10/01/24 16:00 Acetaminophen/ Hydrocodone Bitart 1 tab Q4HP PRN PO 10/01/24 16:00 Ondansetron HCl 4 mg Q4HP PRN IV 10/01/24 16:00 Morphine Sulfate 2 mg Q4HPRN PRN IV 10/01/24 16:00 Vancomycin HCl 250 ml @ 200 mls/hr Q12H IV 10/02/24 06:00 10/03/24 05:47 200 MLS/HR Laboratory Results Laboratory Tests 10/02/24 08:36 10/03/24 05:00 Urinalysis Test 10/01/24 20:30 Urine Color Colorless (Yellow) Urine Clarity Clear (Clear) Urine pH 6.0 (5.0-9.0) Urine Specific [place] 1.012 (1.001-1.035) Urine Protein Negative (Negative) Urine Ketones Negative (Negative) Urine Blood Negative /uL (Negative) Urine Nitrite Negative (Negative) Urine Bilirubin Negative (Negative) Urine Urobilinogen Normal mg/dL (Negative) Urine Leukocyte Esterase Negative /uL (Negative) Urine RBC 1 /hpf (0 - 4) Urine WBC 1 /hpf (0 - 5) Urine Squamous Epithelial Cells Few /hpf (<5) Urine Bacteria Few /hpf (None Seen) H Urine Glucose Trace mg/dL (Normal) Microbiology Microbiology Date/Time Source Procedure Growth Status 10/01/24 13:53 Blood Blood Culture - Preliminary NO GROWTH AFTER 24 HOURS OF INCUBATION. 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
--- NOTE | 2024-10-03 10:36 | DVHINCON2 ---
Date of service: Oct 03, 2024 Referring Physician Shaggy Pantoja MD Reason for Consultation Leukopenia Breast cancer History of Present Illness Yvonne Carrasco is a 59-year-old female with past medical history significant for breast cancer on chemotherapy, HIV, diabetes mellitus, who presented to [facility] ED with chief complaint of weakness and shortness of breath. [Patient was [facility] Jul [facility] due to same complaint, and was treated for PNA at the time.] Labs on presentation 10/01/2024: WBC 1.8, hemoglobin 10.6, MCV 98.6, platelets [id number]. Labs today reveal a WBC of 2.0, hemoglobin 9.8, platelets [id number]. Chest x-ray on 10/01/2024 showed no acute cardiopulmonary disease. In terms of her breast cancer, patient is unclear where she is receiving treatment, however it is suspected to be at the [facility]. She is also unable to recall the name of her oncologist, however has noted that she has had different providers over the last few visits. She was receiving chemotherapy every three weeks, followed by weekly treatment. Based on her description, it was likely that she was receiving AC, followed by weekly Taxol. Her last chemotherapy session was two weeks ago, and she reports receiving three days of injection (likely neupogen) thereafter. She notes that she has completed neoadjuvant chemotherapy at this point. She notes that the lump is currently no longer palpable, suggesting a positive response to chemotherapy, however has not yet been evaluated by the surgeon. Past Medical History Breast cancer, recently completed neoadjuvant chemotherapy Diabetes mellitus GERD Hypertension HIV, on Genvoya Family History: FH: aneurysm G8 MOTHER G8 FATHER FH: cancer G8 SISTER FH: heart attack GRANDMOTHER Allergies: Coded Allergies: NO KNOWN ALLERGIES (Unverified , 03/30/24) Home Meds Active Scripts Albuterol Sulfate (VENTOLIN MDI) 90 Mcg Ih, 90 MCG IN Q6HP PRN for 7 Days, #1 MCG Prov:KEITH BAÑUELOS MD 03/04/23 Prednisone (Prednisone) 20 Mg Tab, 20 MG PO TID for 4 Days, #12 MG Prov:KEITH BAÑUELOS MD 03/04/23 Azithromycin (Azithromycin) 250 Mg Tab, 250 MG PO DAILY, #6 TAB Prov:KEITH BAÑUELOS MD 03/04/23 Kbqnmkcrtdju-Ohwcuyxlss-Wgiuro (Genvoya [phone] mg) 1 Tab Tab, 1 TAB PO DAILY for 30 Days, #30 TAB Prov:SARA CALVO MD 10/31/22 Prednisone (Prednisone) 20 Mg Tab, 20 MG PO DAILY for 17 Days, #17 MG Prov:SARA CALVO MD 10/31/22 Sulfamethoxazole W/Trimethopri (Bactrim Ds Tablet) 1 Tab Tb, 2 TAB PO TID for 17 Days, #102 TAB Prov:SARA CALVO MD 10/31/22 Metformin Hydrochloride (Metformin Hcl) 500 Mg Tab, 1 TAB PO BID, #60 TAB 3 Refills Prov:ESSENCE MARIO MD 10/31/22 Reported Medications Cholecalciferol (VITAMIN D3) 2,000 Unit Tab, 1 TAB PO DAILY, #30 TAB 5 Refills 10/01/24 Lisinopril (Lisinopril) 2.5 Mg Tab, 2.5 MG PO DAILY for 30 Days, MG 10/01/24 Omeprazole (Gnp Omeprazole) 20 Mg Tab, 40 MG PO, TAB 10/01/24 Empagliflozin (Jardiance) 10 Mg Tab, 10 MG PO, TAB 10/01/24 Atorvastatin Calcium (ATORVASTATIN CALCIUM) 20 Mg Tab, 1 TAB PO DAILY, #30 TAB 5 Refills 10/01/24 Hydroxyzine Hcl (Hydroxyzine Hcl) 25 Mg Tab, 1 TAB PO BIDPRN 10/26/22 Current Medications Current Medications Medications (Trade) Dose Ordered Sig/Hiwot Route PRN Reason Start Time Stop Time Status Last Admin Ceftriaxone Sodium 50 ml @ 100 mls/hr DAILY@09 IV 10/04/24 09:00 Pantoprazole Sodium (Protonix Tablet) 40 mg BID@0600,1700 PO 10/03/24 17:00 Review of Systems Negative, otherwise as stated above. Vital Signs Vital Signs Date Time Temp Pulse Resp B/P (MAP) Pulse Ox O2 Delivery O2 Flow Rate FiO2 10/03/24 09:00 98.0 90 16 109/65 (80) 91 98.0 10/03/24 08:00 Room Air* 0 21 Physical Exam General Appearance: Alert, Oriented X3, Cooperative, No acute distress, very tearful. HEENT: Atraumatic, PERRLA, EOMI, Mucous membranes moist/pink Respiratory: Clear to auscultation, Normal air movement Cardiovascular: Regular rate, Normal S1, Normal S2, No murmurs Abdominal: Normal bowel sounds, Soft, No tenderness, No hepatospenomegaly, No masses Extremities: No clubbing, No cyanosis, No edema, Normal pulses, No tenderness/swelling Skin: No rashes, No breakdown, No significant lesion Neuro: Normal speech, Normal tone, Sensation intact. Labs/Diagnostic Data Labs Test 10/03/24 08:40 10/03/24 05:00 10/02/24 08:36 10/01/24 20:30 Range/Units POC Glucose 125 H 70-106 mg/dl White Blood Count 2.0 L 4.4-10.8 10^3/uL Red Blood Count 2.96 L 4.0-5.20 10^6/uL Hemoglobin 9.8 L 12.2-16.2 g/dL Hematocrit 28.6 L 36.0-46.0 % Mean Corpuscular Volume 96.6 80.0-100.0 fL Mean Corpuscular Hemoglobin 33.2 H 28.0-32.0 pg Mean Corpuscular Hemoglobin Concent 34.4 32.0-36.0 g/dL Red Cell Distribution Width 17.6 H 11.8-14.3 % Platelet Count 165 140-450 10^3/uL Mean Platelet Volume 9.0 6.9-10.8 fL Neutrophils (%) (Auto) 37.0-80.0 % Lymphocytes (%) (Auto) 10.0-50.0 % Monocytes (%) (Auto) 0.0-12.0 % Basophils (%) (Auto) 0.0-2.0 % Neutrophils # (Auto) 1.6-8.6 10 ^3/uL Lymphocytes # (Auto) 0.4-5.4 10 ^3/uL Monocytes # (Auto) 0-1.3 10 ^3/uL Differential Total Cells Counted 100.0 100 Neutrophils % (Manual) 18 L 37.0-80.0 Band Neutrophils % (Manual) 0 Lymphocytes % (Manual) 57 H 10.0-50.0 Monocytes % (Manual) 24 H 0-12 Eosinophils % (Manual) 1 0-7 Basophils % (Manual) 0 0.0-2.0 Metamyelocytes % (manual) 0 Myelocytes % (Manual) 0 Promyelocytes % (Manual) 0 Blast Cells % (Manual) 0 Reactive Lymphocytes 0 Platelet Estimate Adequate Creatinine 1.05 H 0.550-1.02 mg/dL Glomerular Filtration Rate Calc 62 >90 mL/min Vancomycin Level Trough 13.6 H 5-10 ug/mL Eosinophils (%) (Auto) 2.1 0.0-7.0 % Eosinophils # (Auto) 0 0-0.8 10 ^3/uL Basophils # (Auto) 0 0-0.2 10 ^3/uL Nucleated Red Blood Cells 0.4 % Sodium Level 140 136-145 mmol/L Potassium Level 4.2 3.5-5.1 mmol/L Chloride Level 108 H 98-107 mmol/L Carbon Dioxide Level 26 20-31 mmol/L Anion Gap 6 5-15 Blood Urea Nitrogen 8 L 9-23 mg/dL BUN/Creatinine Ratio 9.0 L 10.0-20.0 Serum Glucose 113 H 74-106 mg/dL Calcium Level 9.0 8.7-10.4 mg/dL Urine Color Colorless Yellow Urine Clarity Clear Clear Urine pH 6.0 5.0-9.0 Urine Specific [place] 1.012 1.001-1.035 Urine Protein Negative Negative Urine Ketones Negative Negative Urine Blood Negative Negative /uL Urine Nitrite Negative Negative Urine Bilirubin Negative Negative Urine Urobilinogen Normal Negative mg/dL Urine Leukocyte Esterase Negative Negative /uL Urine RBC 1 0 - 4 /hpf Urine WBC 1 0 - 5 /hpf Urine Squamous Epithelial Cells Few <5 /hpf Urine Bacteria Few H None Seen /hpf Urine Glucose Trace Normal mg/dL Test 10/01/24 13:55 10/01/24 13:49 Range/Units Influenza Type A Antigen Negative Negative Influenza Type B Antigen Negative Negative SARS-CoV-2 Antigen (Rapid) Negative NEGATIVE Lactic Acid Level 0.9 0.4-2.0 mmol/L Microbiology Date/Time Source Procedure Growth Status 10/01/24 13:53 Blood Blood Culture - Preliminary NO GROWTH AFTER 24 HOURS OF INCUBATION. Resulted Assessment 1. Breast cancer, current treatment response noted. 2. Neutropenia, secondary to myelosuppression in the setting of chemotherapy, last treatment two weeks ago, followed by 3 days of neupogen. 3. Pneumonia. 4. Thyroid nodule, s/p FNA during last admission in July 2024. 5. Anemia, normocytic, likely secondary to chemotherapy as well. Plan/Recommendation - Continue antibiotics for pneumonia. - If persistent neutropenia, would recommend Neupogen 480 mcg until ANC is grea ter than 1000. - Follow-up on pathology from thyroid nodule, which was completed during last admission. - Patient will continue to follow up with her oncologist upon discharge, and schedule surgical consultation as well. Plan discussed with: Patient CARLO BAHENA MD Oct 03, 2024 10:36
[2024-10-03] MEDS: PANTOPRAZOLE 40 MG TAB PO SCH (16:38)
[2024-10-04 04:25] VITALS: BP 141/76; PULSE 97; RESP 18; TEMP 97.9; O2SAT 91
[2024-10-04 06:40] VITALS: O2SAT 92
[2024-10-04] MEDS: cefTRIAXone 1GM/50ML D5W 50 ML IV SCH (08:57)
[2024-10-04 09:00] VITALS: BP 118/70; PULSE 86; RESP 18; TEMP 98.4; O2SAT 90
--- NOTE | 2024-10-04 10:16 | DVHPN2 ---
Reviewed: Care Plan, H&P, Labs, Medications, Previous Orders, Radiology Changes from previous H/P or p: No Changes Eyes: No Pain, No Vision change, No Conjunctivae inflammation, No Eyelid inflammation, No Other, No Redness ENT: No Ear pain, No Ear discharge, No Nose pain, No Nose discharge, No Nose congestion, No Mouth pain, No Mouth swelling, No Throat pain, No Throat swelling, No Other Cardiovascular: Chest Pain, Palpitations; No Orthopnea, No Paroxysmal Noc. Dyspnea, No Edema, No Lt Headedness, No Other Respiratory: Cough; No Dry; Shortness of breath; No SOB with excertion, No Wheezing, No Hemoptysis, No Pleuritic Pain, No Sputum, No Other Gastrointestinal: No Nausea, No Vomiting, No Abdominal Pain, No Diarrhea, No Constipation, No Melena, No Hematochezia, No Other Genitourinary: No Dysuria, No Frequency, No Incontinence, No Hematuria, No Retention, No Other Musculoskeletal: No other, No neck pain, No shoulder pain, No arm pain, No back pain, No hand pain, No leg pain, No foot pain Skin: No Rash, No Lesions, No Jaundice, No Bruising, No Other Objective Vitals Vital Signs Date Time Temp Pulse Resp B/P (MAP) Pulse Ox O2 Delivery O2 Flow Rate FiO2 10/04/24 09:00 98.4 86 18 118/70 (86) 90 98.4 10/04/24 06:40 Room Air* 0 21 Intake/Output Intake and Output 10/04/24 07:00 Intake Total 1400 ml Balance 1400 ml Intake Oral 1300 ml IV Total 100 ml # Voids 9 Medications Current Medications Medications Dose Ordered Sig/Hiwot Route Start Time Stop Time Status Last Admin Dose Admin Azithromycin 250 mg DAILY PO 10/02/24 10:00 10/04/24 09:44 250 MG Patient Own Medication 1 tab DAILY PO 10/02/24 10:00 10/03/24 09:31 1 TAB Hydroxyzine Pamoate 25 mg BIDPRN PRN PO 10/01/24 22:00 Prednisone 20 mg DAILY PO 10/02/24 10:00 Hold Albuterol 2.5 mg Q4HWA PRN NEB 10/01/24 16:00 10/01/24 20:22 2.5 MG Ipratropium [place] 0.5 mg Q4HWA PRN NEB 10/01/24 16:00 10/01/24 20:22 0.5 MG Diagnostic Test (Pha) 1 strip IQ4HR 10/01/24 16:00 10/04/24 08:00 1 STRIP Insulin Human Regular IQ4HR SC 10/01/24 16:00 10/04/24 09:07 2 UNITS Dextrose 50 ml UD PRN IV 10/01/24 16:00 Sodium Chloride 1,000 ml @ 60 mls/hr [id number] IV 10/01/24 16:00 10/04/24 09:49 60 MLS/HR Lorazepam 0.5 mg Q6HP PRN PO 10/01/24 16:00 Al Hydrox/Mg Hydrox/Simethicone 30 ml Q6HP PRN PO 10/01/24 16:00 10/03/24 08:47 30 ML Docusate Sodium 100 mg BIDPRN PRN PO 10/01/24 16:00 Acetaminophen 650 mg Q6HP PRN PO 10/01/24 16:00 Temazepam 15 mg QHSP PRN PO 10/01/24 16:00 Acetaminophen/ Hydrocodone Bitart 1 tab Q4HP PRN PO 10/01/24 16:00 Ondansetron HCl 4 mg Q4HP PRN IV 10/01/24 16:00 Morphine Sulfate 2 mg Q4HPRN PRN IV 10/01/24 16:00 Ceftriaxone Sodium 50 ml @ 100 mls/hr DAILY@09 IV 10/04/24 09:00 10/04/24 08:57 100 MLS/HR Pantoprazole Sodium 40 mg BID@0600,1700 PO 10/03/24 17:00 10/04/24 05:30 40 MG Laboratory Results Laboratory Tests 10/02/24 08:36 10/03/24 05:00 Urinalysis Test 10/01/24 20:30 Urine Color Colorless (Yellow) Urine Clarity Clear (Clear) Urine pH 6.0 (5.0-9.0) Urine Specific [place] 1.012 (1.001-1.035) Urine Protein Negative (Negative) Urine Ketones Negative (Negative) Urine Blood Negative /uL (Negative) Urine Nitrite Negative (Negative) Urine Bilirubin Negative (Negative) Urine Urobilinogen Normal mg/dL (Negative) Urine Leukocyte Esterase Negative /uL (Negative) Urine RBC 1 /hpf (0 - 4) Urine WBC 1 /hpf (0 - 5) Urine Squamous Epithelial Cells Few /hpf (<5) Urine Bacteria Few /hpf (None Seen) H Urine Glucose Trace mg/dL (Normal) Microbiology Microbiology Date/Time Source Procedure Growth Status 10/01/24 13:53 Blood Blood Culture - Preliminary NO GROWTH AFTER 48 HOURS OF INCUBATION. 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
[2024-10-04] MEDS ORDERED: AZIT500T66 PO (10:18)
--- NOTE | 2024-10-04 10:21 | DVHDS2 ---
Discharge Summary Date of Admission Oct 01, 2024 at 15:52 Date of Discharge: Oct 04, 2024 Admitting Diagnosis Cough and generalized weakness Wounds: None Labs/Diagnostic Data: Laboratory Results Test 10/04/24 08:56 10/03/24 05:00 10/02/24 08:36 10/01/24 20:30 POC Glucose 146 mg/dl (70-106) White Blood Count 2.0 10^3/uL (4.4-10.8) Red Blood Count 2.96 10^6/uL (4.0-5.20) Hemoglobin 9.8 g/dL (12.2-16.2) Hematocrit 28.6 % (36.0-46.0) Mean Corpuscular Volume 96.6 fL (80.0-100.0) Mean Corpuscular Hemoglobin 33.2 pg (28.0-32.0) Mean Corpuscular Hemoglobin Concent 34.4 g/dL (32.0-36.0) Red Cell Distribution Width 17.6 % (11.8-14.3) Platelet Count 165 10^3/uL (140-450) Mean Platelet Volume 9.0 fL (6.9-10.8) Neutrophils (%) (Auto) % (37.0-80.0) Lymphocytes (%) (Auto) % (10.0-50.0) Monocytes (%) (Auto) % (0.0-12.0) Basophils (%) (Auto) % (0.0-2.0) Neutrophils # (Auto) 10 ^3/uL (1.6-8.6) Lymphocytes # (Auto) 10 ^3/uL (0.4-5.4) Monocytes # (Auto) 10 ^3/uL (0-1.3) Differential Total Cells Counted 100.0 (100) Neutrophils % (Manual) 18 (37.0-80.0) Band Neutrophils % (Manual) 0 Lymphocytes % (Manual) 57 (10.0-50.0) Monocytes % (Manual) 24 (0-12) Eosinophils % (Manual) 1 (0-7) Basophils % (Manual) 0 (0.0-2.0) Metamyelocytes % (manual) 0 Myelocytes % (Manual) 0 Promyelocytes % (Manual) 0 Blast Cells % (Manual) 0 Reactive Lymphocytes 0 Platelet Estimate Adequate Creatinine 1.05 mg/dL (0.550-1.02) Glomerular Filtration Rate Calc 62 mL/min (>90) Vancomycin Level Trough 13.6 ug/mL (5-10) Eosinophils (%) (Auto) 2.1 % (0.0-7.0) Eosinophils # (Auto) 0 10 ^3/uL (0-0.8) Basophils # (Auto) 0 10 ^3/uL (0-0.2) Nucleated Red Blood Cells 0.4 % Sodium Level 140 mmol/L (136-145) Potassium Level 4.2 mmol/L (3.5-5.1) Chloride Level 108 mmol/L (98-107) Carbon Dioxide Level 26 mmol/L (20-31) Anion Gap 6 (5-15) Blood Urea Nitrogen 8 mg/dL (9-23) BUN/Creatinine Ratio 9.0 (10.0-20.0) Serum Glucose 113 mg/dL (74-106) Calcium Level 9.0 mg/dL (8.7-10.4) Urine Color Colorless (Yellow) Urine Clarity Clear (Clear) Urine pH 6.0 (5.0-9.0) Urine Specific [place] 1.012 (1.001-1.035) Urine Protein Negative (Negative) Urine Ketones Negative (Negative) Urine Blood Negative /uL (Negative) Urine Nitrite Negative (Negative) Urine Bilirubin Negative (Negative) Urine Urobilinogen Normal mg/dL (Negative) Urine Leukocyte Esterase Negative /uL (Negative) Urine RBC 1 /hpf (0 - 4) Urine WBC 1 /hpf (0 - 5) Urine Squamous Epithelial Cells Few /hpf (<5) Urine Bacteria Few /hpf (None Seen) Urine Glucose Trace mg/dL (Normal) Test 10/01/24 13:55 10/01/24 13:49 Influenza Type A Antigen Negative (Negative) Influenza Type B Antigen Negative (Negative) SARS-CoV-2 Antigen (Rapid) Negative (NEGATIVE) Lactic Acid Level 0.9 mmol/L (0.4-2.0) Other Laboratory Tests 10/03/24 05:00 10/02/24 08:36 Brief Hx & Hospital Course: 59-year-old female with a history of breast cancer on chemotherapy diabetes hypertension GERD HIV thyroid nodule status post biopsy came in complaining of shortness of breaths. Patient was found to have bilateral community-acquired pneumonia treated with Rocephin azithromycin WBC low 1.8 secondary to chemotherapy seen by Hematology Dr. Karen WBC stable at 2.0. Patient feels fine no shortness a breath no fever discharged home on azithromycin for pneumonia she will continue to follow up with the primary Dr she was also advised to follow up on the biopsy report through her primary Dr for the thyroid nodule done in the recent admission. 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 Patient was counseled about treatment plan, medications, possible side effects, patientverbalized understanding. All questions were answered to the best of my ability. 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
--- NOTE | 2024-10-04 10:57 | ECG ---
[facility] Test Date: 2024-10-01 Test Time: 13:23:13 Pat Name: LAQUITA GERARD Department: ER Room: 0239 A Gender: F Regulatory Coordinator: ELVIS : 1965 Requested By: ZELALEM YANG Order Number: [id number] Reading MD: Mahad Urbina Measurements Intervals [place] Rate: 104 P: -26 NE: 134 QRS: 9 QRSD: 87 T: 0 QT: 351 QTc: 462 Interpretive Statements Sinus tachycardia Borderline T abnormalities, inferior leads Electronically Signed On 10-06-2024 16:08:23 PST by Mahad Urbina Please click the below link to view image of tracing.
== END 2024-10-04 12:22 | disposition home or self-care (01) | DRG 190 ==
LOC: ER 13:04 → OVERFLOW 15:52 → EAST 21:49
PROVIDERS: ADMIT Hospitalist; ATTEND Family Medicine
DX: J44.0 Chronic obstructive pulmonary disease with (acute) lower respiratory infection (principal); J12.9 Viral pneumonia, unspecified; J15.69 Pneumonia due to other Gram-negative bacteria; J15.9 Unspecified bacterial pneumonia; Z20.822 Contact with and (suspected) exposure to COVID-19; D72.828 Other elevated white blood cell count; E11.21 Type 2 diabetes mellitus with diabetic nephropathy; E66.01 Morbid (severe) obesity due to excess calories; K21.9 Gastro-esophageal reflux disease without esophagitis; T45.1X5A Adverse effect of antineoplastic and immunosuppressive drugs, initial encounter; D70.1 Agranulocytosis secondary to cancer chemotherapy; I11.0 Hypertensive heart disease with heart failure; I50.9 Heart failure, unspecified; E04.1 Nontoxic single thyroid nodule; D64.9 Anemia, unspecified; Z85.3 Personal history of malignant neoplasm of breast; Z82.49 Family history of ischemic heart disease and other diseases of the circulatory system; Z79.899 Other long term (current) drug therapy; Y92.89 Other specified places as the place of occurrence of the external cause; Z79.84 Long term (current) use of oral hypoglycemic drugs
CPT/HCPCS: 36415; 71046; 80048; 80202; 81001; 82565; 82962; 83605; 85007; 85025; 85027; 87040; 87426; 87804; 93005; 94640; 96365; G0378; J0692; J1642; J1815; J2405